=== PATIENT | male | born 1940 | race Caucasian/White ===

== ENCOUNTER 2019-08-23 07:33 | Day surgery (SDC) | payer OTHER, BC ==
[2019-08-23 08:16] LABS: Basophils % 0.4 % (0-1.3); Hematocrit 46.7 % (39.6-49.0); Lymphocytes % 15.2 % (15.3-44.8); MPV 8.6 fL (7.6-11.3); RBC Red Blood Cell Count 4.97 M/uL (4.33-5.43)
[2019-08-23] MEDS ORDERED: CEFAZOLIN/SWI 1gm 1 GM/10 ML SYR ONE (08:41)
[2019-08-23] MEDS ORDERED: Ringers Lactate 1,000 ML IV ONE (08:41)
--- NOTE | 2019-08-23 08:56 | RAD REPORT ---
EXAM DESCRIPTION: Rufina Andrade (2 Views)08/23/2019 8:24 am CLINICAL HISTORY: Preop four mass removal from back. Hypertension COMPARISON: 2010 FINDINGS: The lungs are mildly hyperaerated The lungs appear clear of acute infiltrate. The heart is normal size IMPRESSION: No acute abnormalities displayed
[2019-08-23] MEDS ORDERED: FENTANYL CITR 100 MCG/2 ML ONE (10:32)
[2019-08-23] MEDS ORDERED: PROPOFOL 200 MG/20 ML VIAL IV ONE (10:32)
[2019-08-23] MEDS ORDERED: LIDOCAINE 2% MPF 5 ML VIAL ONE (10:33)
[2019-08-23] MEDS ORDERED: ONDANSETRON 4 MG/2 ML VIAL ONE (10:34)
[2019-08-23] MEDS ORDERED: MIDAZOLAM HCL 2 MG/2 ML INJ ONE (10:47)
--- NOTE | 2019-08-23 11:01 | EKG ---
Test Date: 2019-08-23 Test Time: 07:52:23 Video System Repairer: [employer] MEASUREMENT RESULTS: Intervals: Rate: 58 [place]: 246 QRSD: 100 QT: 436 QTc: 428 [place]: P: 33 [place]: 246 QRS: 27 T: 86 INTERPRETIVE STATEMENTS: Sinus bradycardia with 1st degree AV block Otherwise normal ECG Compared to ECG 10/12/2011 13:37:54 First degree AV block now present Electronically Signed On 08-23-19 11:00:39 CDT by Carter Ty
[2019-08-23 14:30] VITALS: BP 175/93; TEMP 97.2; O2SAT 96
--- NOTE | 2019-08-24 00:58 | OP ---
Date of Procedure: 08/23/2019 Surgeon: Jason Mo MD Preoperative Diagnosis: Back mass x3. Postoperative Diagnosis: Back mass x3. Procedures: Wide excision, left back mass 5 x 3 cm, with layered closure, and length of the closure was 5 cm. Wide excision, middle back mass 4 x 2 cm with layered closure, and length of closure was 4 cm. Wide excision, right back mass 6 x 4 cm with layered closure, and length of closure was 6 cm. Estimated Blood Loss: Minimal. Specimens: Back mass x3. Findings: Patient's cyst on the right lower back was inflamed and once open at the back table the cy st had as above. Anesthesia: General. Complications: None. Disposition: The patient tolerated the procedure in stable condition, taken to Recovery in good gene ral condition. Procedure In Detail: The patient was brought to the OR and placed in supine position. General anest hesia was begun. The patient was prepped and draped in usual sterile fashion in the left lateral pos ition. Marcaine 0.5% was infiltrated locally. Then, 15-blade was used to make 3 incisions 5 x 3 cm on the left back and 4 x 2 cm of middle black and 6 x 4 cm in the right back, and the entire cyst wit h wall was excised in all 3 areas. Sent to Pathology. Wound irrigated. Bleeding controlled with ca utery. Flaps created on the left in the middle back 2-0 chromic was used to approximate t he subcutaneous tissue and 3-0 nylon was closed skin on the right back. 0 chromic was used to reappr oximate the subcutaneous tissue and kami used to close skin. Sterile dressing was applied. The l ength of closures on the left back with 5 cm, mid back was 4 cm, and right back was [address] essing was applied. Patient was awakened and taken to Recovery in good general condition. Discharge Note: Patient will go to Day Surgery, then home when stable. Disposition: Home. Condition: Stable. Discharge Instructions: Resume home medications and diet. Activity as tolerated. No heavy lifting. Remove outer dressing in 2 days. Shower. Keep wound clean and dry. Followup my office in 1 week. Call for appointment. Tylenol No. 3 one tablet p.o. q.4 p.r.n. pain. Patient has Keflex. REYNA/CAMILLE Voice ID: [id number] Report ID: [id number]
== END 2019-08-23 13:38 | disposition home or self-care (01) ==
LOC: OR 07:33
PROVIDERS: ATTEND Surgery
PROC: 0JB70ZZ Excision of Back Subcutaneous Tissue and Fascia, Open Approach (ICD-10-PCS; 2019-08-23)
PROC: 0JB70ZZ Excision of Back Subcutaneous Tissue and Fascia, Open Approach (ICD-10-PCS; 2019-08-23)
PROC: 0JB70ZZ Excision of Back Subcutaneous Tissue and Fascia, Open Approach (ICD-10-PCS; principal; 2019-08-23 10:30)
DX: L72.0 Epidermal cyst (principal); I10 Essential (primary) hypertension
CPT/HCPCS: 93005; 87070; 85025; 80048; 36415; 87205; 88304; 87075; 71046; 11406 ×2; 11404; J2704; J2250; J3010; J0690; J7120; J2405

== ENCOUNTER 2019-09-11 08:54 | Emergency (ER) | payer OTHER, BC ==
[2019-09-11] MEDS ORDERED: LIDOCAINE 1% W/EPI 1:100,000 MDV 20 ML VIAL ONE (09:13)
--- NOTE | 2019-09-11 10:04 | ER ---
Nurse's Notes [facility] Name: Josh Stewart Age: 79 yrs Sex: Male : 1940 Arrival Date: 09/11/2019 Time: 08:55 Bed 4 Private MD: Diagnosis: Disruption of wound, unspecified Presentation: 09/11 09:01 Presenting complaint: Patient states: Infected cyst removed from R mid back area 2 ss weeks ago. Sutures removed 1 week ago. Patient reports this morning the incision popped open and bled a bit. No active bleeding noted at this time. Incision is approximately 2 inch in length. Transition of care: patient was not received from another setting of care. Onset of symptoms was September 11, 2019. Risk Assessment: Do you want to hurt yourself or someone else? Patient reports no desire to harm self or others. Initial Sepsis Screen: Does the patient meet any 2 criteria? Does the patient have a suspected source of infection? No. Patient's initial sepsis screen is negative. Care prior to arrival: None. 09:01 Method Of Arrival: Ambulatory ss 09:01 Acuity: ASLLY 4 ss Historical: - Allergies: 09:06 NKDA; ss - PMHx: 09:06 Hyperlipidemia; Hypertension; ss - Immunization history:: Adult Immunizations up to date. - Social history:: Smoking status: Patient/guardian denies using tobacco. - Ebola Screening: : Patient denies exposure to infectious person Patient denies travel to an Ebola-affected area in the 21 days before illness onset. Screenin:10 Abuse screen: Denies threats or abuse. Nutritional screening: No deficits noted. aa5 Tuberculosis screening: No symptoms or risk factors identified. Fall Risk None identified. Assessment: 09:10 General: Appears comfortable, Behavior is calm, cooperative. Pain: Denies pain. Neuro: aa5 Level of Consciousness is awake, alert, obeys commands, Oriented to person, place, time, situation. Cardiovascular: Patient's skin is warm and dry. Respiratory: Airway is patent Respiratory effort is even, unlabored, Respiratory pattern is regular, symmetrical. GI: No signs and/or symptoms were reported involving the gastrointestinal system. : No signs and/or symptoms were reported regarding the genitourinary system. EENT: No signs and/or symptoms were reported regarding the EENT system. Derm: Skin is pink, warm \T\ dry. Incision to posterior right lower rib cage area open, approximately 2 in long with subcutaneous tissue noted, no s/s of infection noted to site, no active bleeding noted. Musculoskeletal: Range of motion: intact in all extremities. 10:20 Reassessment: Patient is alert, oriented x 3, equal unlabored respirations, skin aa5 warm/dry/pink. Vital Signs: 09:06 BP 176 / 96; Pulse 68; Resp 16; Temp 98.3(TE); Pulse Ox 98% on R/A; Weight 97.52 kg; ss Height 6 ft. 1 in. (185.42 cm); Pain 0/10; 09:06 Body Mass Index 28.37 (97.52 kg, 185.42 cm) ED Course: 08:55 Patient arrived in ED. as 09:04 Giulia Deras RN is Primary Nurse. aa5 09:05 Ben Cross PA is PHCP. jr8 09:05 Teena Sanchez MD is Attending Physician. jr8 09:05 Triage completed. ss 09:06 Arm band placed on right wrist. ss 09:10 Patient has correct armband on for positive identification. Placed in gown. Bed in low aa5 position. Call light in reach. Side rails up X 1. 09:30 incision repair with sutures, completed by KRZYSZTOF Chong, cleaned with Hibiclens aa5 and saline by KRZYSZTOF. Dressed with gauze and tape per PA. 09:30 Patient did not have IV access during this emergency room visit. aa5 10:03 Jason Mo MD is Referral Physician. jr8 10:54 Primary Nurse role handed off by Giulia Deras, ROBERT aa5 Administered Medications: 09:30 Drug: Lidocaine-Epinephrine -1%: (1:100,000) 1 vials {Note: administered to wound by aa5 KRZYSZTOF Turcios .} Volume: 20 ml; Route: Infiltration; 09:40 Follow up: Response: No adverse reaction aa5 Outcome: 10:04 Discharge ordered by . jr8 10:20 Discharged to home ambulatory. aa5 10:20 Condition: good 10:20 Discharge instructions given to patient, Instructed on discharge instructions, follow up and referral plans. medication usage, Demonstrated understanding of instructions, follow-up care, medications, Prescriptions given X 1. 10:21 Patient left the ED. aa5 Signatures: Krystal Huizar Audri RN RN aa5 Aleisha Bradshaw RN RN Ben Cross PA PA jr8 Corrections: (The following items were deleted from the chart) 09:20 09:10 General: Appears comfortable, Behavior is calm, cooperative, aa5 aa5 10:57 10:47 Patient left the ED. aa5 aa5 :57 10:57 Patient left the ED. aa5 aa5
--- NOTE | 2019-09-11 10:04 | EDPHYS ---
Physician Documentation [facility] Name: Josh Stewart Age: 79 yrs Sex: Male : 1940 Arrival Date: 09/11/2019 Time: 08:55 Bed 4 Private MD: ED Physician Teena Sanchez HPI: 09/11 09:13 This 79 yrs old Male presents to ER via Ambulatory with complaints of Wound jr8 Check. 09:13 The affected area is on the back. Previous treatment: The patient was initially treated jr8 14 day(s) ago. Progress: The patient reports dehiscence of wound . The patient has not experienced similar symptoms in the past. The patient has not recently seen a physician. Patient stated that he had a cyst removed by Dr. Mo about 2 weeks ago. Had been doing well until today. [place] the wound come undone while walking. Stated that it had bleed quite a bit prior to arrival . Historical: - Allergies: 09:06 NKDA; ss - PMHx: 09:06 Hyperlipidemia; Hypertension; ss - Immunization history:: Adult Immunizations up to date. - Social history:: Smoking status: Patient/guardian denies using tobacco. - Ebola Screening: : Patient denies exposure to infectious person Patient denies travel to an Ebola-affected area in the 21 days before illness onset. ROS: 09:13 Constitutional: Negative for fever, chills, and weight loss. jr8 09:13 Skin: Positive for dehiscence of wound. 09:13 All other systems are negative. Exam: 09:13 Cardiovascular: Regular rate and rhythm with a normal S1 and S2. No gallops, murmurs, jr8 or rubs. Normal PMI, no JVD. No pulse deficits. Respiratory: Lungs have equal breath sounds bilaterally, clear to auscultation and percussion. No rales, rhonchi or wheezes noted. No increased work of breathing, no retractions or nasal flaring. Abdomen/GI: Soft, non-tender, with normal bowel sounds. No distension or tympany. No guarding or rebound. No evidence of tenderness throughout. Back: No spinal tenderness. No costovertebral tenderness. Full range of motion. MS/ Extremity: Pulses equal, no cyanosis. Neurovascular intact. Full, normal range of motion. Neuro: Awake and alert, GCS 15, oriented to person, place, time, and situation. Cranial nerves II-XII grossly intact. Motor strength 5/5 in all extremities. Sensory grossly intact. Cerebellar exam normal. Normal gait. 09:13 Skin: Patient has approximately 6 cm dehisced wound noted to right mid back. No active bleeding. Clean in appearance and without discharge or erythema. Vital Signs: 09:06 BP 176 / 96; Pulse 68; Resp 16; Temp 98.3(TE); Pulse Ox 98% on R/A; Weight 97.52 kg; ss Height 6 ft. 1 in. (185.42 cm); Pain 0/10; 09:06 Body Mass Index 28.37 (97.52 kg, 185.42 cm) ss Laceration: 10:01 Wound Repair of 6cm ( 2.4in ) subcutaneous laceration to back. Linear shaped.. Distal jr8 neuro/vascular/tendon intact. Anesthesia: Local anesthetic administered with 10 mls of 1% lidocaine w/ Epi. Wound prep: Extensive cleansing with hibiclenz, Wound irrigation with saline, Wound explored extensively. Subcutaneous tissue closed with 5 4-0 Vicryl using interrupted sutures and sterile technique. Skin closed with 9 3-0 Prolene using interrupted sutures and sterile technique. Patient tolerated well. MDM: 09:05 Patient medically screened. jr8 09:13 ED course: Called Dr. Mo about wound reopening. Wants us to clean and close it jr8 secondarily . 10:01 Data reviewed: vital signs, nurses notes, and as a result, I will discharge patient. jr8 Data interpreted: Pulse oximetry: on room air is 98 %. Interpretation: normal. Counseling: I had a detailed discussion with the patient and/or guardian regarding: the historical points, exam findings, and any diagnostic results supporting the discharge/admit diagnosis, the need for outpatient follow up, a general surgeon, to return to the emergency department if symptoms worsen or persist or if there are any questions or concerns that arise at home. ED course: Patient to f/u with Dr. Mo this afternoon in clinic. Administered Medications: 09:30 Drug: Lidocaine-Epinephrine -1%: (1:100,000) 1 vials {Note: administered to wound by KRZYSZTOF Vigil} Volume: 20 ml; Route: Infiltration; 09:40 Follow up: Response: No adverse reaction aa5 Disposition: 11:45 Co-signature as Attending Physician, Teena Sanchez MD. ma2 Disposition: 09/11/19 10:04 Discharged to Home. Impression: Disruption of wound, unspecified. - Condition is Stable. - Discharge Instructions: Wound Dehiscence. - Prescriptions for Keflex 500 mg Oral Capsule - take 1 capsule by ORAL route every 8 hours for 7 days; 21 capsule. - Medication Reconciliation Form, Thank You Letter, Antibiotic Education, Prescription Opioid Use form. - Follow up: Jason Mo MD; When: Tomorrow; Reason: Wound Recheck, Recheck today's complaints, Continuance of care, Re-evaluation by your physician. - Problem is new. - Symptoms have improved. Signatures: Giulia Deras RN RN aa5 Aleisha Bradshaw RN RN Ben Cross PA PA jr8 Teena Sanchez MD MD ma2 Corrections: (The following items were deleted from the chart) 10:47 10:04 09/11/2019 10:04 Discharged to Home. Impression: Disruption of wound, aa5 unspecified. Condition is Stable. Forms are Medication Reconciliation Form, Thank You Letter, Antibiotic Education, Prescription Opioid Use. Follow up: Dr. Jason Mo; When: Tomorrow; Reason: Wound Recheck, Recheck today's complaints, Continuance of care, Re-evaluation by your physician. Problem is new. Symptoms have improved. jr8 10:57 10:47 09/11/2019 10:04 Discharged to Home. Impression: Disruption of wound, aa5 unspecified. Condition is Stable. Discharge Instructions: Wound Dehiscence. Prescriptions for Keflex 500 mg Oral Capsule - take 1 capsule by ORAL route every 8 hours for 7 days; 21 capsule. and Forms are Medication Reconciliation Form, Thank You Letter, Antibiotic Education, Prescription Opioid Use. Follow up: Dr. Jason Mo; When: Tomorrow; Reason: Wound Recheck, Recheck today's complaints, Continuance of care, Re-evaluation by your physician. Problem is new. Symptoms have improved. aa5
[2019-09-11 10:52] VITALS: BP 176/96; TEMP 98.3; O2SAT 98
== END 2019-09-11 10:57 | disposition home or self-care (01) ==
LOC: ER 08:54
PROC: 0JQ70ZZ Repair Back Subcutaneous Tissue and Fascia, Open Approach (ICD-10-PCS; principal; 2019-09-11)
DX: T81.30XA Disruption of wound, unspecified, initial encounter (principal); I10 Essential (primary) hypertension
CPT/HCPCS: 99283

== ENCOUNTER 2020-11-11 11:32 | Inpatient (IN) | payer OTHER, BC ==
[2020-11-11] MEDS ORDERED: METHYLPREDNISOLONE 125 MG INJ ONE (12:29)
[2020-11-11] MEDS ORDERED: NA CHLORIDE 0.9% 500 ML ONE (12:29)
[2020-11-11 12:50] LABS: Absolute Lymphocytes (CBC) 0.2 K/uL (0.7-4.9); Basophils % 0.1 % (0-1.3); Hematocrit 46.7 % (39.6-49.0); Lymphocytes % 2.9 % (15.3-44.8); MPV 8.5 fL (7.6-11.3); RBC Red Blood Cell Count 5.08 M/uL (4.33-5.43)
[2020-11-11 12:54] LABS: Protime INR 1.16
[2020-11-11 13:19] LABS: Platelet Estimate ADEQ; White Blood Cell Scan OK (OK)
[2020-11-11 13:20] LABS: Blood Morphology Comment NOT SEEN (NOT SEEN)
[2020-11-11 13:21] LABS: Albumin 2.6 g/dL (3.4-5.0); Bilirubin Direct 0.3 mg/dL (0-0.2); Bilirubin Total 1.1 mg/dL (0.2-1.0); C-Reactive Protein 87.9 mg/L (<3.00); Ferritin 1052.9 ng/mL (26-388); Protein, Total 6.8 g/dL (6.4-8.2); Troponin (Emerg Dept Use Only) 0.03 ng/mL (0.0-0.045)
--- NOTE | 2020-11-11 13:21 | RAD REPORT ---
EXAM DESCRIPTION: RAD - Chest Single View - 11/11/2020 1:04 pm CLINICAL HISTORY: DYSPNEA Chest pain. COMPARISON: Chest Pa And Lat (2 Views) dated 08/23/2019; CHEST PA AND LAT 2 VIEW dated 10/12/2011; CH EST PA AND LAT 2 VIEW dated 12/26/2006 FINDINGS: Portable technique limits examination quality. Mild opacity is present in the right base most likely representing infiltrate/pneumonia. This appears superimposed on a mild viral infiltrate pattern bilaterally. The heart is mildly enlarged in size wi th a tortuous thoracic aorta.
[2020-11-11] MEDS ORDERED: Levofloxacin500mg IV 500 MG/100 ML BAG IV ONE (13:55)
--- NOTE | 2020-11-11 13:56 | EDPHYS ---
Physician Documentation [facility] Name: Josh Stewart Age: 80 yrs Sex: Male : 1940 Arrival Date: 11/11/2020 Time: 11:33 Bed 19 Private MD: ED Physician Leonidas Liu HPI: 11/11 13:04 This 80 yrs old Male presents to ER via Wheelchair with complaints of Covid + rn SOB. 13:04 The patient has shortness of breath at rest, with light activity. Onset: The rn symptoms/episode began/occurred 3 day(s) ago. Duration: The symptoms are continuous. The patient's shortness of breath is aggravated by exertion, light activity, talking, walking. Associated signs and symptoms: Pertinent positives: productive cough, fever, Pertinent negatives: hemoptysis, loss of consciousness. Severity of symptoms: At their worst the symptoms were moderate in the emergency department the symptoms are unchanged. The patient has not experienced similar symptoms in the past. The patient has been recently seen by a physician:. Historical: - Allergies: 11:45 NKDA; ll1 - PMHx: 11:45 Hypertension; Hyperlipidemia; ll1 - PSHx: 11:45 None; ll1 - Immunization history:: Flu vaccine is not up to date. - Social history:: Smoking status: Patient denies any tobacco usage or history of. - Family history:: not pertinent. - Hospitalizations: : No recent hospitalization is reported. ROS: 13:04 Constitutional: Negative for weight loss, Eyes: Negative for injury, pain, redness, and internal medicine physician assistant, Neck: Negative for injury, pain, and swelling, Cardiovascular: Negative for chest pain, palpitations, and edema, Respiratory: Negative for wheezing, and pleuritic chest pain Abdomen/GI: Negative for abdominal pain, nausea, vomiting, diarrhea, and constipation, Back: Negative for injury and pain, MS/Extremity: Negative for injury and deformity, Skin: Negative for injury, rash, and discoloration, Neuro: Negative for headache, numbness, tingling, and seizure. Exam: 13:04 Constitutional: This is a well developed, well nourished patient who is awake, alert, rn + moderate tachypnea, 3 word sentences. Head/Face: Normocephalic, atraumatic. ENT: dry MM, no stridor Cardiovascular: Regular rate and rhythm. No pulse deficits. Respiratory: + moderate tachypnea, shallow breaths Abdomen/GI: Soft, non-tender Skin: Warm, dry MS/ Extremity: Pulses equal, no cyanosis. Neuro: Awake and alert, GCS 15 Vital Signs: 11:45 BP 131 / 73; Pulse 88; Resp 28; Temp 99.1; Pulse Ox 90% ; Weight 95.25 kg; Height 6 ft. ll1 0 in. (182.88 cm); Pain 6/10; 13:32 BP 138 / 76; Pulse 80; Resp 30; Pulse Ox 95% on BiPAP; em 14:30 BP 127 / 69; Pulse 76; Resp 18; Pulse Ox 96% on BiPAP; em 15:30 BP 125 / 73; Pulse 66; Resp 18; Pulse Ox 99% on R/A; em 11:45 Body Mass Index 28.48 (95.25 kg, 182.88 cm) ll1 MDM: 11:55 Patient medically screened. rn 13:50 Differential diagnosis: pneumonia, Pneumothorax Sepsis COVID pneumonia, superimposed rn pneumonia. Data reviewed: vital signs, nurses notes, radiologic studies, CT scan, and as a result, I will discharge patient. Counseling: I had a detailed discussion with the patient and/or guardian regarding: the historical points, exam findings, and any diagnostic results supporting the discharge/admit diagnosis, radiology results, the need for outpatient follow up, to return to the emergency department if symptoms worsen or persist or if there are any questions or concerns that arise at home. Response to treatment: the patient's symptoms have mildly improved after treatment, and as a result, I will admit patient. Admission orders: after a detailed discussion of the patient's condition and case, the admit orders are written by me. ED course: Pt with hypoxemia, increased WOB, improved with BIPAP, COVID + with possible superimposed pneumonia, will admit to Dr. Mccarthy. . 11/11 12:03 Order name: Blood Culture Adult (2) rn 11/11 12:03 Order name: BMP; Complete Time: 13: rn 11/11 12:03 Order name: C-Reactive Protein; Complete Time: 13: rn 11/11 12:03 Order name: CBC with Diff; Complete Time: rn 11/11 12:03 Order name: Ferritin; Complete Time: 13:27 rn 11/11 12:03 Order name: Lactate rn 11/11 12:03 Order name: LFT's; Complete Time: 13: rn 11/11 12:03 Order name: Procalcitonin; Complete Time: 14:19 rn 11/11 12:03 Order name: PT-INR; Complete Time: 13: rn 11/11 12:03 Order name: Ptt, Activated; Complete Time: 13: rn 11/11 12:03 Order name: Strep; Complete Time: 13: rn 11/11 12:03 Order name: Troponin (emerg Dept Use Only); Complete Time: 13: rn 11/11 13:05 Order name: Throat Culture EDKS 11/11 13:19 Order name: CBC Smear Scan; Complete Time: 13: EDKS 11/11 12:03 Order name: CXR XRAY; Complete Time: 13: rn 11/11 12:03 Order name: EKG; Complete Time: 12:04 rn 11/11 12:03 Order name: Cardiac monitoring; Complete Time: 12:12 rn 11/11 12:03 Order name: Droplet/Contact Precautions; Complete Time: 12:12 rn 11/11 12:03 Order name: EKG - Nurse/Tech; Complete Time: 12:29 rn 11/11 12:03 Order name: IV Start; Complete Time: 12:12 rn 11/11 12:03 Order name: Labs collected and sent; Complete Time: 12:37 rn 11/11 12:03 Order name: O2 Per Protocol; Complete Time: 12:12 rn 11/11 12:03 Order name: O2 Sat Monitoring; Complete Time: 12:12 rn 11/11 12:32 Order name: BIPAP rn Administered Medications: 12:34 Drug: SOLU-Medrol 125 mg Route: IVP; Site: right forearm; em 13:27 Follow up: Response: No adverse reaction; Marked relief of symptoms em 12:34 Drug: NS 0.9% 500 ml Route: IV; Rate: bolus; Site: right forearm; em 13:27 Follow up: IV Status: Completed infusion; IV Intake: 500ml em 13:48 Drug: LevaQUIN 500 mg Volume: 100 ml; Route: IVPB; Infused Over: 60 mins; Site: right em forearm; 14:59 Follow up: IV Status: Completed infusion; IV Intake: 100ml em Disposition: 11/11/20 13:56 Hospitalization ordered by Kailash Mccarthy for Inpatient Admission. Preliminary diagnosis are Coronavirus infection, unspecified, Pneumonia, unspecified organism, Hypoxemia. - Bed requested for Telemetry/MedSurg (Inpatient). - Status is Inpatient Admission. em - Condition is Stable. - Problem is new. - Symptoms have improved. Signatures: Dispatcher [employer] EDMS Guera Stringer Edgar, RN RN Leonidas Barrett MD MD rn Lewis, ROBERT Lucia RN ll1 Corrections: (The following items were deleted from the chart) 15:06 13:56 Hospitalization Ordered by Kailash Mccarthy DO for Inpatient Admission. Preliminary bd diagnosis is Coronavirus infection, unspecified; Pneumonia, unspecified organism; Hypoxemia. Bed requested for Telemetry/MedSurg (Inpatient). Status is Inpatient Admission. Condition is Stable. Problem is new. Symptoms have improved. rn 15:55 15:06 11/11/2020 13:56 Hospitalization Ordered by Kailash Mccarthy DO for Inpatient em Admission. Preliminary diagnosis is Coronavirus infection, unspecified; Pneumonia, unspecified organism; Hypoxemia. Bed requested for Telemetry/MedSurg (Inpatient). Status is Inpatient Admission. Condition is Stable. Problem is new. Symptoms have improved. bd
--- NOTE | 2020-11-11 13:56 | ER ---
Nurse's Notes [facility] Name: Josh Stewart Age: 80 yrs Sex: Male : 1940 Arrival Date: 11/11/2020 Time: 11:33 Bed 19 Private MD: Diagnosis: Coronavirus infection, unspecified;Pneumonia, unspecified organism;Hypoxemia Presentation: 11/11 11:45 Chief complaint: Patient states: SOB for 3 days. Covid positive at [place] [facility]. Fever ll1 100.1 at home. Coronavirus screen: Client denies travel out of the [place] in the last 14 days. congestion, cough unrelated to allergies, difficulty breathing, fatigue, fever, Client presents with at least one sign or symptom that may indicate coronavirus-19. Standard/surgical mask placed on the client. Ebola Screen: Patient denies travel to an Ebola-affected area in the 21 days before illness onset. Initial Sepsis Screen: Does the patient meet any 2 criteria? No. Patient's initial sepsis screen is negative. Does the patient have a suspected source of infection? Yes: Productive cough/pneumonia. Risk Assessment: Do you want to hurt yourself or someone else? Patient reports no desire to harm self or others. Onset of symptoms was October 26, 2020. 11:45 Method Of Arrival: Wheelchair ll1 11:45 Acuity: SALLY 2 ll1 Historical: - Allergies: 11:45 NKDA; ll1 - PMHx: 11:45 Hypertension; Hyperlipidemia; ll1 - PSHx: 11:45 None; ll1 - Immunization history:: Flu vaccine is not up to date. - Social history:: Smoking status: Patient denies any tobacco usage or history of. - Family history:: not pertinent. - Hospitalizations: : No recent hospitalization is reported. Screenin:00 Abuse screen: Denies threats or abuse. Nutritional screening: No deficits noted. em Tuberculosis screening: No symptoms or risk factors identified. Fall Risk None identified. Assessment: 12:00 General: Appears uncomfortable, Behavior is calm, cooperative, Denies fever. General: em Reports fatigue for 12-24 hours. Pain: Denies pain. Neuro: Level of Consciousness is awake, alert, obeys commands, Oriented to person, place, time, situation, Appropriate for age. Cardiovascular: Denies chest pain, Capillary refill < 3 seconds Patient's skin is warm and dry. Respiratory: Reports shortness of breath on exertion Airway is patent Respiratory effort is even, labored, Respiratory pattern is tachypnea Breath sounds are diminished bilaterally. Derm: Skin is intact, is thin, Skin is pink, warm \T\ dry. Musculoskeletal: Capillary refill < 3 seconds, Range of motion: intact in all extremities. 12:30 Reassessment: RT at bedside. em 13:33 Reassessment: Patient appears in no apparent distress at this time. Patient and/or em family updated on plan of care and expected duration. Pain level reassessed. Patient states feeling better. Patient states symptoms have improved. 14:47 Reassessment: Patient appears in no apparent distress at this time. Dr. Mccarthy at em bedside. 15:50 Reassessment: Patient appears in no apparent distress at this time. Patient and/or em family updated on plan of care and expected duration. Pain level reassessed. Patient is alert, oriented x 3, equal unlabored respirations, skin warm/dry/pink. Vital Signs: 11:45 BP 131 / 73; Pulse 88; Resp 28; Temp 99.1; Pulse Ox 90% ; Weight 95.25 kg; Height 6 ft. ll1 0 in. (182.88 cm); Pain 6/10; 13:32 BP 138 / 76; Pulse 80; Resp 30; Pulse Ox 95% on BiPAP; em 14:30 BP 127 / 69; Pulse 76; Resp 18; Pulse Ox 96% on BiPAP; em 15:30 BP 125 / 73; Pulse 66; Resp 18; Pulse Ox 99% on R/A; em 11:45 Body Mass Index 28.48 (95.25 kg, 182.88 cm) ll1 ED Course: 11:33 Patient arrived in ED. ds1 11:44 Arm band placed on. ll1 11:48 Triage completed. ll1 11:55 Leonidas Liu MD is Attending Physician. rn 11:55 Ladarius Alves, ROBERT is Primary Nurse. em 12:00 Oxygen administration via nasal cannula \T\ 3L/min. jp3 12:15 First set of blood cultures drawn by me. Inserted saline lock: 20 gauge in right jp3 forearm, using aseptic technique. Blood collected. 12:19 EKG done, by ED staff, reviewed by Leonidas Liu MD Strep swab sent to lab. jp3 12:25 Initial lab(s) drawn, by me, sent to lab. Second set of blood cultures drawn by me. jp3 12:30 Placed in gown. Bed in low position. Call light in reach. Side rails up X 1. Warm jp3 blanket given. Verbal reassurance given. cardiac monitor technician on. Pulse ox on. NIBP on. 13:04 CXR XRAY In Process Unspecified. EDMS 13:55 Kailash Mccarthy DO is Hospitalizing Provider. rn 15:53 No provider procedures requiring assistance completed. Patient admitted, IV remains in em place. Administered Medications: 12:34 Drug: SOLU-Medrol 125 mg Route: IVP; Site: right forearm; em 13:27 Follow up: Response: No adverse reaction; Marked relief of symptoms em 12:34 Drug: NS 0.9% 500 ml Route: IV; Rate: bolus; Site: right forearm; em 13:27 Follow up: IV Status: Completed infusion; IV Intake: 500ml em 13:48 Drug: LevaQUIN 500 mg Volume: 100 ml; Route: IVPB; Infused Over: 60 mins; Site: right em forearm; 14:59 Follow up: IV Status: Completed infusion; IV Intake: 100ml em Intake: 13:27 IV: 500ml; Total: 500ml. em 14:59 IV: 100ml; Total: 600ml. em Outcome: 13:56 Decision to Hospitalize by Provider. rn 15:53 Admitted to Tele accompanied by tech, via stretcher, room 409, with oxygen, with chart, em Report called to ROBERT Gresham 15:53 Condition: improved 15:53 Instructed on the need for admit, Demonstrated understanding of instructions. 15:55 Patient left the ED. em Signatures: Dispatcher [employer] EDMS Ladarius Alves, RN RN em Kasey Leonardo ds1 Leonidas Liu MD MD rn Pisarski, Jacob jp3 Khari Anderson RN RN ll1 Corrections: (The following items were deleted from the chart) 12:34 12:34 NS 0.9% 500 ml IV at bolus in right antecubital em em
[2020-11-11] MEDS ORDERED: BENZONATATE 100 MG CAP PO PRN (15:41)
[2020-11-11] MEDS ORDERED: ACETAMINOPHEN 500 MG TAB PO PRN (15:41)
[2020-11-11] MEDS ORDERED: GABAPENTIN 100 MG CAP PO PRN (15:41)
[2020-11-11] MEDS ORDERED: ONDANSETRON 4 MG/2 ML VIAL IV PRN (15:41)
--- NOTE | 2020-11-11 16:15 | P.HP ---
Certification for Inpatient Patient admitted to: Observation With expected LOS: <2 Midnights Patient will require the following post-hospital care: Other (Home oxygen) Practitioner: I am a practitioner with admitting privileges, knowledge of patient current condition, hospital course, and medical plan of care. Services: Services provided to patient in accordance with Admission requirements found in Title 42 Section 412.3 of the Code of Federal Regulations Patient History Date of Service: 11/11/20 Primary Care Provider: Dr. Bone Reason for admission: Shortness of breath History of Present Illness: 80-year-old male with history of hypertension, hyperlipidemia, BPH, hypothyroidism and GERD. Patient reports increasing shortness of breath over the past several weeks. Patient started she reports some shortness of breath and cough on October 27. He apparently went to [place] [facility] about 3 days ago and tested positive for COVID. Patient was released home. At home patient continue to have increasing shortness of breath. Increased fatigue, cough, and body aches noted. He came to the ER for further evaluation. In the ER patient was evaluated. Blood pressure 133/77. Heart rate 91. Patient was tachypneic in the ER. Patient had desaturations for requiring 3 L per nasal cannula. During the course of his ER visit patient required BiPAP. Chest x-ray reveals pattern of COVID pneumonia. White count 8.3, hemoglobin 15.4. Sodium 131, potassium 4.0. BUN of 22, creatinine 1.16 with a GFR 60. Glucose 99. Fe rritin 1052. CRP 87. Total bilirubin 1.1. AST 62. Pro calcitonin unremarkable. Patient admitted for further evaluation and treatment. When I saw the patient ER, patient was on BiPAP but only required 28% Fi02. Patient without significant tachypnea. Patient reports other female lady friend with similar symptoms. Allergies ciprofloxacin Allergy (Verified 08/23/19 13:14) Rash Home medications list reviewed: Yes Home Medications: Tramadol HCl [Tramadol] 50 mg PO Q6HP PRN #0 tbmp.24hr 11/29/11 Aspirin [Ecotrin 81 MG] 81 mg PO DAILY 08/23/19 Diltiazem HCl [Cardizem Cd] 240 mg PO DAILY 08/23/19 Finasteride [Proscar*] 5 mg PO DAILY 08/23/19 Gabapentin 100 mg PO DAILY 08/23/19 Omeprazole [Prilosec] 40 mg PO DAILY 08/23/19 Rosuvastatin Calcium [Crestor] 10 mg PO DAILY 08/23/19 - Past Medical/Surgical History -: Hypertension -: BPH -: Hyperlipidemia -: Neuropathy -: Hypothyroidism Past Surgical History: Reviewed- Non-Contributory Psychosocial/ Personal History: Patient is - Family History Family History: Reviewed- Non-Contributory - Social History Smoking Status: Never smoker Alcohol use: Yes CD- Drugs: No Caffeine use: Yes Place of Residence: Home Review of Systems General: Weakness, Malaise, As per HPI Eyes: Unremarkable ENT: As per HPI Respiratory: Cough, Shortness of Breath, SOB with Excertion, As per HPI Cardiovascular: Unremarkable Gastrointestinal: Unremarkable Genitourinary: Unremarkable Musculoskeletal: Unremarkable Integumentary: Unremarkable Neurological: Unremarkable Lymphatics: Unremarkable Physical Examination - Vital Signs Temperature: 99.1 F Blood Pressure: 131/73 Pulse: 88 Respirations: 28 - Physical Exam General: Alert, In no apparent distress, Oriented x3, Cooperative HEENT: Atraumatic Neck: Supple Respiratory: Other (Patient currently on BiPAP. FiO2 20%) Cardiovascular: Normal pulses Gastrointestinal: Normal bowel sounds, No tenderness, No masses, No rebound, No guarding Musculoskeletal: No erythema, No tenderness, No warmth Integumentary: No tenderness/swelling, No erythema, No warmth, No cyanosis Neurological: Normal speech, Normal strength at 5/5 x4 extr, Normal tone, Normal affect - Studies Laboratory Data (last 24 hrs) 11/11/20 12:26: PT 13.6 H, INR 1.16, APTT 25.6 11/11/20 12:26: WBC 8.3, Hgb 15.4, Hct 46.7, Plt Count 214 11/11/20 12:26: Sodium 139, Potassium 4.0, BUN 22 H, Creatinine 1.16, Glucose 99, Total Bilirubin 1.1 H, AST 62 H, ALT 70, Alkaline Phosphatase 93 Microbiology Data (last 24 hrs): 11/11/20 12:19 Throat Group A Streptococcus Rapid Screen - Final Assessment and Plan - Plan Impression: Dyspnea secondary to acute respiratory failure with hypoxia related to bilateral COVID pneumonia HTN Hyperlipidemia BPH Plan: Dyspnea secondary to acute respiratory failure with hypoxia related to bilateral COVID pneumonia: Patient will be admitted for further evaluation and treatment. Patient currently on BiPAP. This can be stepped down to high-flow oxygen. Will monitor closely. Maintain sats above 90%. Options for care address in detail. Will start IV Solu-Medrol. Provide Lovenox for DVT prophylaxis. Continue with supplementation medication. Will reassess tomorrow to determine if Remdesivir needs to be started. Pulmonology consulted. Will continue monitor closely. Anticipate improvement over the next 24-48 hr. Patient will likely require home oxygen at discharge. HTN: Restart home medication. Hyperlipidemia: Restart home medication BPH: Restart home medication. Discharge Plan: Home Plan to discharge in: 48 Hours - Advance Directives Does patient have a Living Will: No Does patient have a Durable POA for Healthcare: No - Code Status/Comfort Care Code Status Assessed: Yes (full code) Time Spent Managing Pts Care (In Minutes): 55
[2020-11-11 17:10] LABS: Urine Appearance CLEAR; Urine Blood TRACE (NEG); Urine Color DK YELLOW; Urine Glucose NEGATIVE (NEG); Urine Protein 2+ (NEG); Urine Specific Gravity 1.025 (1.005-1.030)
[2020-11-11] MEDS: ENOXAPARIN 40 MG/0.4 ML SQ SCH (17:39)
[2020-11-11] MEDS: METHYLPREDNISOLONE 125 MG INJ IV SCH (17:39)
[2020-11-11] MEDS: ASCORBIC ACID 500 MG TABLET PO SCH ×2 (17:39→21:14)
[2020-11-11 18:05] LABS: Urine Bilirubin NEGATIVE (NEG); Urine Microscopic Reflex ORDER UMIC
[2020-11-11 19:06] LABS: Urine Bacteria 20-50 /HPF (NONE SEEN); Urine Mucus 3+ /HPF (NONE SEEN); Urine RBC <5 /HPF (NONE SEEN)
[2020-11-11] MEDS: ROSUVASTATIN 10 MG TAB PO SCH (21:13)
[2020-11-11] MEDS: FAMOTIDINE 20 MG TAB PO SCH (21:14)
[2020-11-11] MEDS: MELATONIN 5 MG TABLET PO SCH (21:14)
[2020-11-11] MEDS: THIAMINE HCL 100 MG TABLET PO SCH (21:14)
[2020-11-11] MEDS: FINASTERIDE 5 MG TAB PO SCH (21:16)
[2020-11-12] MEDS: METHYLPREDNISOLONE 125 MG INJ IV SCH ×3 (00:34→16:04)
[2020-11-12] MEDS: LEVOTHYROXINE SOD 0.025 MG TAB PO SCH (06:33)
[2020-11-12 06:48] LABS: Absolute Lymphocytes (CBC) 0.2 K/uL (0.7-4.9); Basophils % 0.1 % (0-1.3); Hematocrit 40.8 % (39.6-49.0); Lymphocytes % 3.8 % (15.3-44.8); MPV 8.2 fL (7.6-11.3); RBC Red Blood Cell Count 4.46 M/uL (4.33-5.43)
[2020-11-12 06:58] LABS: Albumin 2.1 g/dL (3.4-5.0); Bilirubin Total 0.6 mg/dL (0.2-1.0); Magnesium 2.5 mg/dL (1.8-2.4); Potassium 4.1 mmol/L (3.5-5.1); Protein, Total 5.9 g/dL (6.4-8.2)
[2020-11-12 07:33] LABS: C-Reactive Protein 95.4 mg/L (<3.00); Ferritin 1099.4 ng/mL (26-388)
[2020-11-12] MEDS ORDERED: IVERMECTIN 3 MG TABLET PO ONE (07:54)
[2020-11-12] MEDS: VITAMIN D 1000 UNIT TAB PO SCH (08:45)
[2020-11-12] MEDS: ZINC SULFATE 220 MG CAP PO SCH (08:45)
[2020-11-12] MEDS: ENOXAPARIN 40 MG/0.4 ML SQ SCH (08:45)
[2020-11-12] MEDS: ASPIRIN EC 81 MG TAB PO SCH (08:46)
[2020-11-12] MEDS: ASCORBIC ACID 500 MG TABLET PO SCH ×4 (08:46→20:50)
[2020-11-12] MEDS: FAMOTIDINE 20 MG TAB PO SCH ×2 (08:46→20:50)
[2020-11-12] MEDS: DILTIAZEM HCL 120 MG SR CAP PO SCH (08:46)
[2020-11-12] MEDS: THIAMINE HCL 100 MG TABLET PO SCH ×2 (08:48→20:50)
[2020-11-12] MEDS ORDERED: TRAMADOL HCL 100 MG PO PRN (09:09)
[2020-11-12] MEDS ORDERED: Remdesivir 200 MG in NA CHLORIDE 0.9% 250 ML IV ONE (10:00)
--- NOTE | 2020-11-12 13:51 | P.CNS ---
Date of Consult: 11/12/20 Primary Care Provider: Dr. Bone Chief Complaint: Shortness of breath History of Present Illness: Patient is 80 years of age with a history of hypertension hyperlipidemia was admitted with progressive shortness of breath worsens Miah read the 5th he also went to [facility] emergency room and was released home became worse and appeared in the emergency round with tachypnea low oxygen as currently nasal cannula oxygen is seems to be doing relatively well. Although he feels very weak Allergies ciprofloxacin Allergy (Intermediate, Verified 11/11/20 16:19) Rash Home Medications: Tramadol HCl [Tramadol] 50 mg PO Q6HP PRN #0 tbmp.24hr 11/29/11 Aspirin [Ecotrin 81 MG] 81 mg PO DAILY 08/23/19 Diltiazem HCl [Cardizem Cd] 240 mg PO DAILY 08/23/19 Finasteride [Proscar*] 5 mg PO DAILY 08/23/19 Gabapentin 100 mg PO DAILY 08/23/19 Omeprazole [Prilosec] 40 mg PO DAILY 08/23/19 Rosuvastatin Calcium [Crestor] 10 mg PO DAILY 08/23/19 Multivitamin [Multiple Vitamins] 1 tab PO DAILY 11/11/20 - Past Medical/Surgical History Diabetic: No -: Hypertension -: BPH -: Hyperlipidemia -: Neuropathy -: Hypothyroidism Psychosocial/ Personal History: Patient is - Social History Alcohol use: Yes CD- Drugs: No Caffeine use: Yes Place of Residence: Home Review of Systems 10-point ROS is otherwise unremarkable General: Weakness Respiratory: Cough, Shortness of Breath Physical Examination Temp Pulse Resp BP Pulse Ox 97.4 F 62 22 H 170/85 H 97 11/12/20 08:00 11/12/20 08:46 11/12/20 08:00 11/12/20 08:46 11/12/20 08:00 General: Alert, Oriented x3, Moderate distress Neck: Supple Respiratory: Clear to auscultation bilaterally, Diminished - Problems (1) 2019 novel coronavirus disease (COVID-19) Current Visit: Yes Status: Acute Plan: Patient is 80 years of age admitted with respiratory failure from shaffer virus he is currently feeling very weak short of breath although he is on nasal cannula oxygen is not rare treat to go home agree with the foreign treatment for shaffer virus infection including Remdesmir and ivermectin ferritin level is over a 1000
--- NOTE | 2020-11-12 16:49 | P.PN ---
Subjective Date of Service: 11/12/20 Primary Care Provider: Dr. Bone Chief Complaint: Shortness of breath Subjective: Other (Patient on high-flow) Physical Examination - Vital Signs Temperature: 97.6 F Blood Pressure: 121/70 Pulse: 49 Respirations: 20 Pulse Ox (%): 97 - Physical Exam General: Alert, Cooperative HEENT: Atraumatic Neck: Supple Respiratory: Other (Patient on high-flow oxygen) Cardiovascular: Normal pulses Neurological: Normal speech, Normal strength at 5/5 x4 extr, Normal tone, Normal affect - Studies Microbiology Data (last 24 hrs): 11/11/20 12:19 Throat Group A Streptococcus Rapid Screen - Final Medications List Reviewed: Yes Assessment & Plan Discharge Plan: Home Plan to discharge in: 48 Hours Physician Review Additional Text: Impression: Dyspnea secondary to acute respiratory failure with hypoxia related to bilateral COVID pneumonia HTN Hyperlipidemia BPH Plan: Dyspnea secondary to acute respiratory failure with hypoxia related to bilateral COVID pneumonia: Continue current plan of care. Pulmonology recommends to start Remdesivir. Will initiate medication. Continue to wean down oxygen. Encourage ambulation. Encourage the spirometer. Anticipate improvement over the next 48 hr. Will continue to trend lab. Recheck chest x-ray tomorrow. HTN: Continue home medication and adjust appropriately.. Hyperlipidemia: Continue home medication adjust properly. BPH: Continue home medication Time Spent Managing Pts Care (In Minutes): 55
[2020-11-12] MEDS: FINASTERIDE 5 MG TAB PO SCH (20:50)
[2020-11-12] MEDS: ROSUVASTATIN 10 MG TAB PO SCH (20:50)
[2020-11-12] MEDS: MELATONIN 5 MG TABLET PO SCH (20:50)
[2020-11-13] MEDS: METHYLPREDNISOLONE 125 MG INJ IV SCH ×3 (00:42→16:37)
[2020-11-13] MEDS: LEVOTHYROXINE SOD 0.025 MG TAB PO SCH (06:17)
[2020-11-13 06:53] LABS: Absolute Lymphocytes (CBC) 0.3 K/uL (0.7-4.9); Basophils % 0.1 % (0-1.3); Hematocrit 40.5 % (39.6-49.0); Lymphocytes % 3.4 % (15.3-44.8); MPV 8.5 fL (7.6-11.3); RBC Red Blood Cell Count 4.43 M/uL (4.33-5.43)
[2020-11-13 07:13] LABS: ALT/SGPT 131 U/L (12-78); AST/SGOT 94 U/L (15-37); Alkaline Phosphatase 73 U/L (45-117); BUN Blood Urea Nitrogen 27 mg/dL (7-18); Bicarbonate 25 mmol/L (21-32); Bilirubin Direct 0.1 mg/dL (0-0.2); Bilirubin Total 0.6 mg/dL (0.2-1.0); Glucose Level 148 mg/dL (74-106); Magnesium 2.5 mg/dL (1.8-2.4); Potassium 3.9 mmol/L (3.5-5.1); Protein, Total 5.6 g/dL (6.4-8.2); Sodium Level 138 mmol/L (136-145)
[2020-11-13] MEDS: FAMOTIDINE 20 MG TAB PO SCH ×2 (08:59→20:06)
[2020-11-13] MEDS: ASPIRIN EC 81 MG TAB PO SCH (08:59)
[2020-11-13] MEDS: ENOXAPARIN 40 MG/0.4 ML SQ SCH (08:59)
[2020-11-13] MEDS: ASCORBIC ACID 500 MG TABLET PO SCH ×4 (08:59→20:07)
[2020-11-13] MEDS: ZINC SULFATE 220 MG CAP PO SCH (09:00)
[2020-11-13] MEDS: Remdesivir 100 MG in NA CHLORIDE 0.9% 250 ML IV SCH (09:01)
[2020-11-13] MEDS: THIAMINE HCL 100 MG TABLET PO SCH ×2 (09:02→20:07)
[2020-11-13] MEDS: VITAMIN D 1000 UNIT TAB PO SCH (09:02)
[2020-11-13] MEDS: DILTIAZEM HCL 120 MG SR CAP PO SCH (09:29)
[2020-11-13 10:07] LABS: C-Reactive Protein 48.1 mg/L (<3.00); Ferritin 1284.6 ng/mL (26-388)
--- NOTE | 2020-11-13 12:30 | P.PN ---
Subjective Date of Service: 11/13/20 Primary Care Provider: Dr. Bone Chief Complaint: Pneumonia due to shaffer virus Subjective: Improving (Patient is improving he is feeling better still short of breath) Review of Systems General: Weakness Respiratory: Shortness of Breath Physical Examination - Vital Signs Temperature: 97.3 F Blood Pressure: 162/74 Pulse: 50 Respirations: 24 Pulse Ox (%): 96 - Physical Exam General: Alert, Oriented x3 Neck: Supple Respiratory: Crackles/rales, Friction rub Cardiovascular: Regular rate/rhythm - Studies Microbiology Data (last 24 hrs): 11/11/20 12:19 Throat Culture & Sensitivity - Final NORMAL UPPER RESPIRATORY YUDY GROWN. Medications List Reviewed: Yes Assessment & Plan - Problems (Diagnosis) (1) 2019 novel coronavirus disease (COVID-19) Current Visit: Yes Status: Acute Plan: Respiratory failure from shaffer virus he is improving his only a nasal cannula oxygen agree with discharge and with 5 days of ivermectin and prednisone 20 b.i.d. for at least 2 weeks then 10 b.i.d. full anticoagulation multi vitamin supplementation patient's ferritin level is still over a 1000 status post Remdesmir
--- NOTE | 2020-11-13 17:01 | P.PN ---
Subjective Date of Service: 11/13/20 Primary Care Provider: Dr. Bone Chief Complaint: Pneumonia due to shaffer virus Subjective: Other (Patient is slowly improving. Still some shortness of breath with exertion.) Physical Examination - Vital Signs Temperature: 97.3 F Blood Pressure: 162/74 Pulse: 50 Respirations: 24 Pulse Ox (%): 96 - Physical Exam General: Alert, In no apparent distress, Cooperative HEENT: Atraumatic Neck: Supple Respiratory: Other (Currently on 2 L) Cardiovascular: Normal pulses, Regular rate/rhythm Gastrointestinal: Normal bowel sounds, Soft and benign, Non-distended Neurological: Normal speech, Normal strength at 5/5 x4 extr, Normal tone, Normal affect - Studies Microbiology Data (last 24 hrs): 11/11/20 12:19 Throat Culture & Sensitivity - Final NORMAL UPPER RESPIRATORY YUDY GROWN. Medications List Reviewed: Yes Assessment & Plan Discharge Plan: Home Plan to discharge in: 48 Hours Physician Review Additional Text: Impression: Dyspnea secondary to acute respiratory failure with hypoxia related to bilateral COVID pneumonia HTN Hyperlipidemia BPH Plan: Dyspnea secondary to acute respiratory failure with hypoxia related to bilateral COVID pneumonia: Continue current management. Case discussed with pulmonology. Continue current plan of care. Continue with IV steroid and Remdesivir. Patient also on supplementation. Continue to wean down oxygen. Encourage ambulation. Encourage incentive spirometer. Patient will likely require oxygen at discharge. Anticipate improvement over the next 48 hr. Possible discharge as early as tomorrow if patient able to ambulate well without significant desaturation. I will turn the service over to the hospitalist team tomorrow. I will go plan of care with him. HTN: Continue home medication and adjust appropriately.. Hyperlipidemia: Continue home medication adjust properly. BPH: Continue home medication Time Spent Managing Pts Care (In Minutes): 55
[2020-11-13] MEDS: ROSUVASTATIN 10 MG TAB PO SCH (20:07)
[2020-11-13] MEDS: MELATONIN 5 MG TABLET PO SCH (20:07)
[2020-11-13] MEDS: FINASTERIDE 5 MG TAB PO SCH (20:07)
[2020-11-14] MEDS: METHYLPREDNISOLONE 125 MG INJ IV SCH ×4 (00:46→23:57)
[2020-11-14 03:38] LABS: Absolute Lymphocytes (CBC) 0.2 K/uL (0.7-4.9); Basophils % 0.2 % (0-1.3); Hematocrit 43.4 % (39.6-49.0); Lymphocytes % 2.4 % (15.3-44.8); MPV 8.2 fL (7.6-11.3); RBC Red Blood Cell Count 4.73 M/uL (4.33-5.43)
[2020-11-14 03:58] LABS: Albumin 2.1 g/dL (3.4-5.0); Bilirubin Direct 0.2 mg/dL (0-0.2); Bilirubin Total 0.6 mg/dL (0.2-1.0); C-Reactive Protein 26.1 mg/L (<3.00); Ferritin 1011.9 ng/mL (26-388); Magnesium 2.4 mg/dL (1.8-2.4); Potassium 4.1 mmol/L (3.5-5.1); Protein, Total 5.8 g/dL (6.4-8.2)
[2020-11-14] MEDS: LEVOTHYROXINE SOD 0.025 MG TAB PO SCH (05:32)
[2020-11-14] MEDS: DILTIAZEM HCL 120 MG SR CAP PO SCH (09:00)
[2020-11-14] MEDS: ENOXAPARIN 40 MG/0.4 ML SQ SCH (09:00)
[2020-11-14] MEDS: Remdesivir 100 MG in NA CHLORIDE 0.9% 250 ML IV SCH (09:21)
[2020-11-14] MEDS: VITAMIN D 1000 UNIT TAB PO SCH (09:22)
[2020-11-14] MEDS: FAMOTIDINE 20 MG TAB PO SCH ×2 (09:22→20:02)
[2020-11-14] MEDS: ASPIRIN EC 81 MG TAB PO SCH (09:22)
[2020-11-14] MEDS: ZINC SULFATE 220 MG CAP PO SCH (09:22)
[2020-11-14] MEDS: THIAMINE HCL 100 MG TABLET PO SCH ×2 (09:22→20:02)
[2020-11-14] MEDS: ASCORBIC ACID 500 MG TABLET PO SCH ×4 (09:22→20:02)
[2020-11-14] MEDS ORDERED: LACTULOSE 20 GM/30 ML UCUP PO PRN (10:22)
--- NOTE | 2020-11-14 10:40 | P.PN ---
Subjective Date of Service: 11/14/20 Primary Care Provider: Dr. Bone Chief Complaint: Pneumonia due to shaffer virus Subjective: No new changes, No C/O voiced, Improving Physical Examination - Vital Signs Temperature: 96.9 F Blood Pressure: 151/79 Pulse: 47 Respirations: 20 Pulse Ox (%): 93 - Physical Exam General: Alert, Oriented x3 HEENT: Atraumatic, Normocephalic, PERRLA Neck: Supple, 2+ carotid pulse no bruit Respiratory: Normal air movement, Diminished Cardiovascular: No edema, Normal pulses, Regular rate/rhythm, Normal S1 S2 Gastrointestinal: Normal bowel sounds, Non-distended Musculoskeletal: No clubbing, No swelling, No contractures Neurological: Normal speech, Normal strength at 5/5 x4 extr, Normal tone, Cranial nerves 3-12 intact External genitalia: No edema, No lesions - Studies Laboratory Last Values WBC 8.3 K/uL (4.3-10.9) 11/11/20 12:26 RBC 5.08 M/uL (4.33-5.43) 11/11/20 12:26 Hgb 15.4 g/dL (13.6-17.9) 11/11/20 12:26 Hct 46.7 % (39.6-49.0) 11/11/20 12:26 MCV 92.0 fL (80-100) 11/11/20 12:26 MCH 30.3 pg (27.0-35.0) 11/11/20 12:26 MCHC 33.0 g/dL (32.0-36.0) 11/11/20 12:26 RDW 13.6 % (12.1-15.2) 11/11/20 12:26 Plt Count 214 K/uL (152-406) 11/11/20 12:26 MPV 8.5 fL (7.6-11.3) 11/11/20 12:26 Neutrophils % 91.4 % (41.7-73.7) H 11/11/20 12:26 Lymphocytes % 2.9 % (15.3-44.8) L 11/11/20 12:26 Monocytes % 5.6 % (3.3-12.3) 11/11/20 12:26 Eosinophils % 0.0 % (0-4.4) 11/11/20 12:26 Basophils % 0.1 % (0-1.3) 11/11/20 12:26 Absolute Neutrophils 7.6 K/uL (1.8-8.0) 11/11/20 12: Absolute Lymphocytes 0.2 K/uL (0.7-4.9) L 11/11/20 12:26 Absolute Monocytes 0.5 K/uL (0.1-1.3) 11/11/20 12:26 Absolute Eosinophils 0.0 K/uL (0-0.5) 11/11/20 12:26 Absolute Basophils 0.0 K/uL (0-0.5) 11/11/20 12:26 Platelet Estimate Adeq 11/11/20 12:26 Morphology Comment Not seen (NOT SEEN) 11/11/20 12:26 PT 13.6 SECONDS (9.5-12.5) H 11/11/20 12:26 INR 1.16 11/11/20 12:26 APTT 25.6 SECONDS (24.3-36.9) 11/11/20 12:26 Sodium 139 mmol/L (136-145) 11/11/20 12:26 Potassium 4.0 mmol/L (3.5-5.1) 11/11/20 12:26 Chloride 104 mmol/L (98-107) 11/11/20 12:26 Carbon Dioxide 27 mmol/L (21-32) 11/11/20 12:26 BUN 22 mg/dL (7-18) H 11/11/20 12:26 Creatinine 1.16 mg/dL (0.55-1.3) 11/11/20 12:26 Estimated GFR 60 mL/min (=/>90) L 11/11/20 12:26 Glucose 99 mg/dL (74-106) 11/11/20 12:26 Lactic Acid Cancelled 11/11/20 12:03 Calcium 8.6 mg/dL (8.5-10.1) 11/11/20 12:26 Ferritin 1052.9 ng/mL (26-388) H 11/11/20 12:26 Total Bilirubin 1.1 mg/dL (0.2-1.0) H 11/11/20 12:26 Direct Bilirubin 0.3 mg/dL (0-0.2) H 11/11/20 12:26 AST 62 U/L (15-37) H 11/11/20 12:26 ALT 70 U/L (12-78) 11/11/20 12:26 Alkaline Phosphatase 93 U/L (45-117) 11/11/20 12:26 Rapid Troponin I 0.03 ng/mL (0.0-0.045) 11/11/20 12:26 C-Reactive Protein 87.90 mg/L (<3.00) H 11/11/20 12:26 Serum Total Protein 6.8 g/dL (6.4-8.2) 11/11/20 12:26 Albumin 2.6 g/dL (3.4-5.0) L 11/11/20 12:26 Globulin 4.2 g/dL (2.3-3.5) H 11/11/20 12:26 Albumin/Globulin Ratio 0.6 (1.1-1.8) L 11/11/20 12:26 Procalcitonin < 0.05 ng/mL (<0.050) 11/11/20 12:26 Smear Scan Ok (OK) 11/11/20 12:26 Laboratory Results WBC 8.3 K/uL (4.3-10.9) 11/11/20 12:26 RBC 5.08 M/uL (4.33-5.43) 11/11/20 12:26 Hgb 15.4 g/dL (13.6-17.9) 11/11/20 12:26 Hct 46.7 % (39.6-49.0) 11/11/20 12:26 MCV 92.0 fL (80-100) 11/11/20 12:26 MCH 30.3 pg (27.0-35.0) 11/11/20 12:26 MCHC 33.0 g/dL (32.0-36.0) 11/11/20 12:26 RDW 13.6 % (12.1-15.2) 11/11/20 12:26 Plt Count 214 K/uL (152-406) 11/11/20 12:26 MPV 8.5 fL (7.6-11.3) 11/11/20 12:26 Neutrophils % 91.4 % (41.7-73.7) H 11/11/20 12:26 Lymphocytes % 2.9 % (15.3-44.8) L 11/11/20 12: Monocytes % 5.6 % (3.3-12.3) 11/11/20 12: Eosinophils % 0.0 % (0-4.4) 11/11/20 12: Basophils % 0.1 % (0-1.3) 11/11/20 12: Absolute Neutrophils 7.6 K/uL (1.8-8.0) 11/11/20 12: Absolute Lymphocytes 0.2 K/uL (0.7-4.9) L 11/11/20 12: Absolute Monocytes 0.5 K/uL (0.1-1.3) 11/11/20 12: Absolute Eosinophils 0.0 K/uL (0-0.5) 11/11/20 12: Absolute Basophils 0.0 K/uL (0-0.5) 11/11/20 12:26 Platelet Estimate Adeq 11/11/20 12:26 Morphology Comment Not seen (NOT SEEN) 11/11/20 12:26 PT 13.6 SECONDS (9.5-12.5) H 11/11/20 12:26 INR 1.16 11/11/20 12:26 APTT 25.6 SECONDS (24.3-36.9) 11/11/20 12:26 Sodium 139 mmol/L (136-145) 11/11/20 12:26 Potassium 4.0 mmol/L (3.5-5.1) 11/11/20 12:26 Chloride 104 mmol/L (98-107) 11/11/20 12:26 Carbon Dioxide 27 mmol/L (21-32) 11/11/20 12:26 BUN 22 mg/dL (7-18) H 11/11/20 12:26 Creatinine 1.16 mg/dL (0.55-1.3) 11/11/20 12:26 Estimated GFR 60 mL/min (=/>90) L 11/11/20 12:26 Glucose 99 mg/dL (74-106) 11/11/20 12:26 Lactic Acid Cancelled 11/11/20 12:03 Calcium 8.6 mg/dL (8.5-10.1) 11/11/20 12:26 Ferritin 1052.9 ng/mL (26-388) H 11/11/20 12:26 Total Bilirubin 1.1 mg/dL (0.2-1.0) H 11/11/20 12:26 Direct Bilirubin 0.3 mg/dL (0-0.2) H 11/11/20 12:26 AST 62 U/L (15-37) H 11/11/20 12:26 ALT 70 U/L (12-78) 11/11/20 12:26 Alkaline Phosphatase 93 U/L (45-117) 11/11/20 12:26 Rapid Troponin I 0.03 ng/mL (0.0-0.045) 11/11/20 12:26 C-Reactive Protein 87.90 mg/L (<3.00) H 11/11/20 12:26 Serum Total Protein 6.8 g/dL (6.4-8.2) 11/11/20 12:26 Albumin 2.6 g/dL (3.4-5.0) L 11/11/20 12:26 Globulin 4.2 g/dL (2.3-3.5) H 11/11/20 12:26 Albumin/Globulin Ratio 0.6 (1.1-1.8) L 11/11/20 12:26 Procalcitonin < 0.05 ng/mL (<0.050) 11/11/20 12:26 Smear Scan Ok (OK) 11/11/20 12:26 Microbiology Data (last 24 hrs): 11/11/20 12:19 Throat Culture & Sensitivity - Final NORMAL UPPER RESPIRATORY YUDY GROWN. Medications List Reviewed: Yes Assessment & Plan Physician Review: Patient Assessed, Agree with Above Assessment and Plan Physician Review Additional Text: Impression: Dyspnea secondary to acute respiratory failure with hypoxia related to bilateral COVID pneumonia HTN Hyperlipidemia BPH Plan: Dyspnea secondary to acute respiratory failure with hypoxia related to bilateral COVID pneumonia: -Improving oxygen, wean down from 2 L to 1L today -stable 02 saturation -c/w incentive spirometer use -still 02 desaturation to < 87% with ambulation reported , follow trend today - may need home 02 if still unable to wean off 02 in am - Continue current management with IV steroid and Remdesivir. Patient also on supplementation. HTN: Continue home medication and adjust appropriately.. Hyperlipidemia: Continue home medication adjust properly. BPH: Continue home medication Time Spent Managing Pts Care (In Minutes): 35
[2020-11-14] MEDS: HYDRALAZINE HCL 25 MG TABLET PO SCH ×2 (11:21→20:02)
--- NOTE | 2020-11-14 14:56 | P.DS ---
Admission Date: 11/11/20 Discharge Date: 11/14/20 Primary Care Provider: Dr. 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 Patient reports increasing shortness of breath over the past several weeks. Patient started she reports some shortness of breath and cough on October 27. He apparently went to [facility] about 3 days ago and tested positive for COVID. Patient was released home. At home patient continue to have increasing shortness of breath. Increased fatigue, cough, and body aches noted. He came to the ER for further evaluation. In the ER patient was evaluated. Blood pressure 133/77. Heart rate 91. Patient was tachypneic in the ER. Patient had desaturations for requiring 3 L per nasal cannula. During the course of his ER visit patient required BiPAP. Chest x-ray reveals pattern of COVID pneumonia. White count 8.3, hemoglobin 15.4. Sodium 131, potassium 4.0. BUN of 22, creatinine 1.16 with a GFR 60. Glucose 99. Ferritin 1052. CRP 87. Total bilirubin 1.1. AST 62. Pro calcitonin unremarkable. Patient admitted for further evaluation and treatment. When I saw the patient ER, patient was on BiPAP but only required 28% Fi02. Patient without significant tachypnea. Patient reports other female lady friend with similar symptoms. Allergies Hospital Course: 80-year-old male with past medical history of hypertension, BPH admitted for cough with bilateral pneumonia. He developed worsening symptoms the started to improve with escalating doses of IV steroids, zinc and added ivermectin. Patient O2 is gradually been weaned down to 1 L now. His chest symptoms of a cough symptoms has improved. He will be discharged home today on home O2. Pulmonary has been discussed with and recommended discharge home. He will follow with Pulmonary in 2 days Vital Signs/Physical Exam: Temp Pulse Resp BP Pulse Ox 97.6 F 52 22 H 145/81 H 92 11/14/20 12:00 11/14/20 12:00 11/14/20 12:00 11/14/20 12:00 11/14/20 12:00 General: Alert, In no apparent distress, Oriented x3 HEENT: Atraumatic, Normocephalic, PERRLA Neck: Supple, 2+ carotid pulse no bruit, JVD not distended Respiratory: Normal air movement, Diminished Cardiovascular: No edema, Normal pulses, Regular rate/rhythm, Normal S1 S2 Gastrointestinal: Normal bowel sounds, Soft and benign, Non-distended, No ascites Musculoskeletal: No clubbing, No swelling Integumentary: No rashes, No breakdown Neurological: Normal speech, Normal strength at 5/5 x4 extr Laboratory Data at Discharge: WBC 9.9 K/uL (4.3-10.9) D 11/14/20 03:30 Hgb 14.4 g/dL (13.6-17.9) 11/14/20 03:30 Hct 43.4 % (39.6-49.0) 11/14/20 03:30 Plt Count 220 K/uL (152-406) 11/14/20 03:30 PT 13.6 SECONDS (9.5-12.5) H 11/11/20 12:26 INR 1.16 11/11/20 12:26 APTT 25.6 SECONDS (24.3-36.9) 11/11/20 12:26 Sodium 138 mmol/L (136-145) 11/14/20 03:30 Potassium 4.1 mmol/L (3.5-5.1) 11/14/20 03:30 BUN 32 mg/dL (7-18) H 11/14/20 03:30 Creatinine 0.84 mg/dL (0.55-1.3) 11/14/20 03:30 Glucose 120 mg/dL (74-106) H 11/14/20 03:30 Magnesium 2.4 mg/dL (1.8-2.4) 11/14/20 03:30 Total Bilirubin 0.6 mg/dL (0.2-1.0) 11/14/20 03:30 AST 61 U/L (15-37) H 11/14/20 03:30 ALT 140 U/L (12-78) H 11/14/20 03:30 Alkaline Phosphatase 77 U/L (45-117) 11/14/20 03:30 Home Medications: Tramadol HCl [Tramadol HCl ER] 50 mg PO Q6HP PRN #0 tbmp.24hr 11/29/11 Aspirin [Ecotrin 81 MG] 81 mg PO DAILY 08/23/19 Finasteride [Proscar*] 5 mg PO DAILY 08/23/19 Gabapentin 100 mg PO DAILY 08/23/19 Omeprazole [Prilosec] 40 mg PO DAILY 08/23/19 Rosuvastatin Calcium [Crestor] 10 mg PO DAILY 08/23/19 Multivitamin [Multiple Vitamins] 1 tab PO DAILY 11/11/20 Cholecalciferol (Vitamin D3) [Vitamin D 1000 Iu Tab*] 4,000 unit PO DAILY tab 11/14/20 Dexamethasone [Decadron] 6 mg PO DAILY #6 tablet 11/14/20 Famotidine [Pepcid*] 20 mg PO BID #60 tab 11/14/20 Finasteride [Proscar*] 5 mg PO BEDTIME tab 11/14/20 Gabapentin [Neurontin*] 100 mg PO BEDTIME PRN cap 11/14/20 Hydralazine [Apresoline*] 50 mg PO BID #60 tab 11/14/20 Zinc Sulfate [Zinc Sulfate*] 220 mg PO DAILY #30 cap 11/14/20 New Medications: Hydralazine [Apresoline*] 50 mg PO BID #60 tab Dexamethasone [Decadron] 6 mg PO DAILY #6 tablet Famotidine [Pepcid*] 20 mg PO BID #60 tab Zinc Sulfate [Zinc Sulfate*] 220 mg PO DAILY #30 cap Patient Discharge Instructions: Retuun to ER if worsneing SOB. - follow with Dr Newman in 2 days Diet: Low sodium Activity: Ad pako Followup: Judah Bone MD [Primary Care Provider] - Pravin Cuenca MD [ACTIVE - CAN ADMIT] - 1-2 Days Time spent managing pt's care (in minutes): 45
[2020-11-14] MEDS: MELATONIN 5 MG TABLET PO SCH (20:02)
[2020-11-14] MEDS: FINASTERIDE 5 MG TAB PO SCH (20:03)
[2020-11-14] MEDS: ROSUVASTATIN 10 MG TAB PO SCH (20:04)
[2020-11-15 04:12] LABS: Albumin 2.1 g/dL (3.4-5.0); Bilirubin Direct 0.2 mg/dL (0-0.2); Bilirubin Total 0.5 mg/dL (0.2-1.0); Protein, Total 5.3 g/dL (6.4-8.2)
[2020-11-15 04:48] VITALS: BP 152/84; TEMP 97
[2020-11-15] MEDS: LEVOTHYROXINE SOD 0.025 MG TAB PO SCH (05:17)
[2020-11-15 05:23] VITALS: BMI 28.8
[2020-11-15 07:25] VITALS: O2SAT 92
== END 2020-11-15 08:58 | disposition home or self-care (01) | DRG 177 ==
LOC: ER 11:32 → ERHOLD 15:16 → 4TH 15:26
PROVIDERS: ADMIT Family Medicine; ATTEND Internal Medicine
PROC: XW033E5 Introduction of Remdesivir Anti-infective into Peripheral Vein, Percutaneous Approach, New Technology Group 5 (ICD-10-PCS; principal; 2020-11-12)
DX: U07.1 COVID-19 (principal); J12.82 Pneumonia due to coronavirus disease 2019; J96.01 Acute respiratory failure with hypoxia; I10 Essential (primary) hypertension; E78.5 Hyperlipidemia, unspecified; N40.0 Benign prostatic hyperplasia without lower urinary tract symptoms; K21.9 Gastro-esophageal reflux disease without esophagitis; K59.00 Constipation, unspecified; R00.1 Bradycardia, unspecified; Z88.1 Allergy status to other antibiotic agents; Z79.82 Long term (current) use of aspirin; Z79.899 Other long term (current) drug therapy
CPT/HCPCS: 36415; 71045; 80048; 80053; 80076; 81003; 81015; 82248; 82728; 83735; 84145; 84484; 85025; 85610; 85730; 86140; 87040; 87070; 87081; 87086; 87088; 93005; 94002; 94003; 94010; 94660; 96361; 96365; 96375; 99285; J1650; J2930; J7040; J7050

== ENCOUNTER 2025-03-05 11:02 | Day surgery (SDC) | payer OTHER, BC ==
[2025-02-28 14:13] LABS: Absolute Eosinophils 0.1 K/uL (0-0.5); Absolute Lymphocytes (CBC) 1.2 K/uL (0.7-4.9); Absolute Monocytes 0.5 K/uL (0.1-1.3); Absolute Neutrophil 4.4 K/uL (1.8-8.0); Basophils % 0.6 % (0-1.3); Hemoglobin 13.9 g/dL (13.6-17.9); Lymphocytes % 19.3 % (15.3-44.8); MCH 31.8 pg (27.0-35.0); MCV 93.6 fL (80-100); MPV 8.1 fL (7.6-11.3); Monocytes % 7.8 % (3.3-12.3); Neutrophils % 70.3 % (41.7-73.7); Nucleated Red Blood Cells % 0.1 % (0-0); Platelets 179 thou/uL (152-406); RBC Red Blood Cell Count 4.38 M/uL (4.33-5.43); Red Cell Distribution Width 13.7 % (12.1-15.2)
[2025-02-28 14:21] LABS: PT Prothrombin Time 15.3 SECONDS (10-13.0); PTT, Activated Partial Thromb 39.3 SECONDS (27.2-37.4); Protime INR 1.36
--- NOTE | 2025-02-28 14:21 | RAD REPORT ---
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 COMPARISON: 11/11/2020 FINDINGS: The lungs are hyperexpanded suggesting COPD. The heart is mildly to moderately enlarged. No displaced fractures evident. Aortic atherosclerosis. IMPRESSION: COPD is suspected without acute finding identified.
[2025-02-28 14:27] LABS: Anion Gap 11.1 mEq/L (5.0-15.0); Potassium 4.1 mEq/L (3.5-5.1)
--- NOTE | 2025-03-03 12:06 | EKG ---
Test Date: 2025-02-28 Test Time: 14:03:57 Junior Account Executive: PRABHA MEASUREMENT RESULTS: Intervals: Rate: 57 AL: 256 QRSD: 102 QT: 444 QTc: 432 [place]: P: 32 AL: 256 QRS: 4 T: 140 INTERPRETIVE STATEMENTS: Sinus bradycardia with 1st degree AV block ST & T wave abnormality, consider lateral ischemia Abnormal ECG Compared to ECG 11/11/2020 12:22:52 ST (T wave) deviation now present Possible ischemia now present Sinus rhythm no longer present T-wave abnormality no longer present Electronically Signed On 03-03-25 12:04:08 CDT by Jesus Castillo
[2025-03-05] MEDS ORDERED: NA CHLORIDE 0.9% 500 ML ONE (11:05)
[2025-03-05] MEDS ORDERED: VERAPAMIL HCL 10 MG/4 ML VIAL IV ONE (11:53)
[2025-03-05] MEDS ORDERED: LIDOCAINE 1% 20 ML MDV ONE (11:53)
[2025-03-05] MEDS ORDERED: HEPA 1000U/500MLS 2,000 UNIT/1,000 ML BAG IV ONE (11:53)
[2025-03-05] MEDS ORDERED: HEPARIN 10,000 UNIT/10 ML VIAL IV ONE (11:53)
[2025-03-05] MEDS ORDERED: FENTANYL CITR 100 MCG/2 ML ONE (11:54)
[2025-03-05] MEDS ORDERED: MIDAZOLAM HCL 2 MG/2 ML INJ ONE (11:54)
[2025-03-05] MEDS ORDERED: ATROPINE SULF 1 MG/10 ML SYR IV ONE (11:54)
[2025-03-05] MEDS ORDERED: HEPARIN 5000 UNIT/ML 1 ML VIAL ONE (11:55)
[2025-03-05] MEDS ORDERED: ASPIRIN 81 MG CHEWABLE TABLET ONE (11:55)
[2025-03-05] MEDS ORDERED: TICAGRELOR 90 MG TABLET PO ONE (11:55)
[2025-03-05] MEDS ORDERED: CLOPIDOGREL 75 MG TABLET ONE (11:55)
[2025-03-05] MEDS ORDERED: NITROGLYCERIN/D5W 50 MG/250 ML BTL IV ONE (11:56)
--- NOTE | 2025-03-05 13:53 | OP ---
Date of Procedure: 03/05/2025 Surgeon: DONA PARRA Procedure Performed: Selective coronary angiogram. Indication: Pre-aortic valve replacement. Access: Right radial artery 6-Cypriot closed with TR band. Complications: None. Bleeding: Less than 50 mL. Description Of Procedure: After risks, benefits, and alternatives were explained, the patient agreed to procedure and signed informed consent. The [facility], prepped and draped in usual sterile fashion. Then, I accessed right radial artery using pedi atric micropuncture kit, placed 6-Cypriot slender sheath and took 5-Cypriot [place] 4.0 catheter over a J -wire into the aortic root, engaged the left main, took standard views, and in the RCA, took standard views and then removed the catheter and the sheath, placed TR band with good hemostasis. Findings: 1. Left main normal. 2. LAD; proximal 30% stenosis, and the mid segment is normal. Distally, there is focal 30% stenosis. Diagonal 1 branch has 20% to 30% stenosis. 3. Left circumflex; moderate to large size vessel, then it is normal. Normal OM branches. 4. RCA; large size vessel, that is normal as well. Conclusion: Mild nonobstructive coronary artery disease. Recommendation: Proceed with aortic valve replacement and medical management for coronary artery dis ease. SR/MODL Voice ID: [id number] Report ID: [id number]
[2025-03-05 15:11] VITALS: O2SAT 100
[2025-03-05 15:25] VITALS: BP 134/62
== END 2025-03-05 15:25 | disposition home or self-care (01) ==
LOC: CCL 11:02
PROVIDERS: ATTEND Internal Medicine
DX: I35.0 Nonrheumatic aortic (valve) stenosis (principal); I25.10 Atherosclerotic heart disease of native coronary artery without angina pectoris; I10 Essential (primary) hypertension; E78.2 Mixed hyperlipidemia; Z86.711 Personal history of pulmonary embolism; Z79.01 Long term (current) use of anticoagulants; Z79.899 Other long term (current) drug therapy; Z88.1 Allergy status to other antibiotic agents; Z88.8 Allergy status to other drugs, medicaments and biological substances
CPT/HCPCS: 93005; 85025; 80048; 36415; 85610; 85730; 71046; 93454; 76937; C1893; Q9966; J1644; J2003; J2250; J3010; J7040; 99152; 99153; J0461

== ENCOUNTER 2025-08-01 06:46 | Inpatient (IN) | payer OTHER, BC ==
[2025-08-01] MEDS ORDERED: CALCIUM CARBONATE CHEW 500MG TAB PO PRN (13:44)
[2025-08-01] MEDS ORDERED: ALBUTEROL 2.5 MG/3 ML NEB SOL NEB PRN (13:44)
--- NOTE | 2025-08-01 13:56 | P.RH.PN ---
Estimated Length of Stay: 12 Expected Discharge Date: 08/07/25 Discharge Disposition Plan: Home Family Support: Yes Pole Inspector Goal: Mobility, Transfers, Self Care Vital Signs: Last Vital Signs Temp 98.0 F 08/01/25 10:10 Pulse 84 08/01/25 10:10 Resp 18 08/01/25 10:10 BP 138/75 08/01/25 10:10 Pulse Ox 96 08/01/25 10:10 Weight: 207 lb Physician Update: Labs reviewed and are stable. Fully oriented and works well with staff. He has moderate pain at left femur fracture site. Min assist for all transfers except car transfers max assist. RW 150' x 2 and another 150'. He had back pain. Will add pain patch. WC 250' min assist. Summary: Patient's care plan and intermodal customer service goals have been reviewed and revised as necessary. Please see the Rehabilitation Signature page for all necessary signatures.
[2025-08-01] MEDS: CODEINE 30MG/APAP 300MG TAB PO PRN (14:00)
[2025-08-01] MEDS: FINASTERIDE 5 MG TAB PO SCH (19:09)
[2025-08-01] MEDS: APIXABAN 5 MG TABLET PO SCH (19:09)
[2025-08-01] MEDS: GABAPENTIN 100 MG CAP PO SCH (19:09)
[2025-08-01] MEDS: DOCUSATE NA/SENNA CONC 1 TAB PO SCH (19:09)
--- NOTE | 2025-08-02 04:35 | HP ---
Date of Admission: 08/01/2025 Time: 1:10 p.m. Chief Complaint: "I fell and broke my left hip." History Of Present Illness: Mr. Stewart is an 84-year-old patient with pulmonary embolism, muscle weak ness, hypertension, hypothyroidism, GERD, dyslipidemia, cognitive impairment, prostate cancer, who tomas d a transcatheter aortic valve replacement on 05/27/2025 without significant complications and was di scharged home the following day. After returning home, he had significant weakness, gait instability , and fell on 05/31/2025. He impacted his left hip, had significant pain. He was brought to [facility] and imaging showed an intertrochanteric fracture of the left femur. On 06/02/2025, he had surgical intervention with an intramedullary mallory of the left femur. He was discharged to [facility] for michelle abilitation on 06/05 and initially he demonstrated steady progress. However, about a month ago, he t wisted his back while exiting the shower and had persistent low back pain and his mobility slowed his recovery. His daughter also reported he remained largely bedbound for about a week and b ecome very weak. However, he has shown some gradual recovery. His hospital course and course post d ischarge included complications of his hypertension, fluctuations, mild urinary incontinence, and of course hypothyroidism requiring ongoing management. Prior to the patient's fall and fracture, he lives alone with his daughter nearby. He was independen t all mobility and activities of daily living. He only occasionally using a cane. His daughter note d, he is very active, completing his errands, enjoying a cruise prior to his fall. Currently require s supervision for mobility and activities of daily living using a walker and he is functioning well b elow his level of functioning. He is therefore a good candidate for aggressive inpatient rehabilitat ion where he will have his comorbid medical conditions managed along with recent physical, occupation al, and speech therapy for his cognition. The goal is to have him return towards his prior level of functioning and reduce his risk of rehospitalization. Past Medical History: As noted above. Surgical History: TAVR procedure on 05/27/2025 and the femur surgery on 06/02/2025. Allergies: CIPROFLOXACIN AND TAMSULOSIN. Medications: Tylenol with codeine 1 every 4 hours as needed, albuterol nebulizer 2.5 mg every 4 hour s as needed, Eliquis 5 mg twice daily, Tums 500 mg 4 times daily as needed, vitamin D 1000 units lizette y, diltiazem 120 mg daily, Proscar 5 mg at bedtime, gabapentin 100 mg twice daily, Synthroid 0.25 mg daily, lidocaine 2 patches apply topically daily to the lower back, Robaxin 500 mg 3 times daily, Pro tonix 40 mg daily, Senokot-S two at bedtime. Laboratory Studies: His blood work, laboratory studies are pending. X-rays imaging: More recent x-ray imaging pending. Family History: Noncontributory. Social History: No alcohol, tobacco, or IV drug use. Patient lives alone, but with a family close b y and to be back with his daughter after discharge at least until he is able to return to his independent functional status. Review of Systems: Some moderate back pain more than left hip pain. Mild myalgias arthralgias. No rash. No fevers or chills. No nausea, vomiting. No diarrhea or other positives on the systems review. Current Level Of Functioning: Currently for his eating independent, grooming independent, supervisio n for bathing, upper body dressing, contact guard assistance, lower body dressing, contact guard assi stance transferring bed to chair, wheelchair and toilet, contact guard assistance. Ambulation, conta ct guard assist, ambulating up to 250 feet, wheelchair 250 feet with supervision. Physical Examination: Vital Signs: Blood pressure 138/75, pulse 84, respiratory rate 18, temperature 98, oxygen saturation 96%. Weight 207 pounds, height 6 feet 1 inch, BMI 27.3. General: Mr. Stewart is resting in his bed. He does have some pain rated around 5 to 6 in the lower b ack, which is most painful phase, left hip surgical site has much less pain. HEENT: Otherwise, he is normocephalic, atraumatic. Sclerae anicteric. Oropharynx pink and moist. Neck: Supple. Chest: Clear. Extremities: No significant edema in the lower extremities. Neurological: There is no focal neurological deficit, giveaway weakness because of back pain. Rehab And Medical Assessment And Plan: Mr. Stewart is an 84-year-old patient admitted to the inpatient rehabilitation unit with impairment category 07, fracture of the lower extremity. Impairment group code is 08.1, unilateral hip fracture. Etiologic diagnosis: Nondisplaced intertrochanteric fracture of the left femur. Comorbidities include decreased mobility, decreased physical functioning, histor y of pulmonary embolism, hypertension, hypothyroidism, GERD, dyslipidemia, detw-mo-upmxxchk cognitive impairment, prostate cancer, recent TAVR procedure and the intramedullary mallory of the left femur. Plan: Will be to have physical and occupational, and speech therapy 3.5 hours, 5 of 7 days. He has a list of comorbid conditions and medications which have been noted and will be continued. He will h ave DVT prophylaxis and stroke risk reduction with Eliquis, gabapentin for neuropathic pain, lidocain e patch to the back for pain along with muscle relaxant, Protonix for GE reflux, Senokot-S for consti pation. Now he has bowel movement therapy and his diet and hydration. Comorbidities That Are Impacting Rehabilitation: Given he has atrial fibrillation, he is on Eliquis. He has a risk of bleeding especially if he falls on his noncompressible site. The patient had a ga it belt at all times, mobilizing and wheelchair and tow as he ambulates around the unit. His additio nal factors potentially risk of aspiration pneumonia is there. We will have incentive spirometry for that. We will have cranberry to reduce the risk of urinary tract infection and for his h emoglobin and hematocrit to determine if additional measures are needed such as protein supplementati on, iron supplementation, and transfusions. Rehab Specific Plan: Mr. Stewart will have physical, occupational, speech therapy 3.5 hours, 5 of 7 da ys to improve his ability to transfer from his bed to a chair, to wheelchair, to a toilet. He will g o in and out of the shower, to dress upper and lower body, donning and doffing his footwear. We will have his occupational therapy to work on his activities of daily living, have speech to work communi cation, safety awareness, processing and managing medications and he at this point able to do weightb earing on the left lower extremity but still precautions for his hip. Mr. Stewart has a good understanding of the process of admission to the inpatient rehabilitation unit a nd how he will benefit from physical, occupational, and speech therapy. He will have 24 hours a day, 7 days a week skilled rehabilitation nursing, daily physician evaluation and management, and social secretary evaluation and management for discharge planning, home equipment, and to continue therapy af ter his discharge. Barriers To Discharge: He is 84 and lives alone; however, his daughter will be with him for a while at least after going home. However, if there is not thriving as much he has already demonstrated heriberto e difficulty and bouncing right back may require extended stay, however, the goal is for him to be ab le to go home. He does have again risk of bleeding, risk of stroke, risk of pulmonary embolus that w ill be mitigated with Eliquis, mobilization if need be DOTTIE hose and sequential compression devices wi ll be applied. Length Of Stay: About 14 days. Disposition: Expected to go home and continue therapy via Home Health. Prognosis: Good. Code Status: Full code. Rehab Specific Goals: 1. Become independent with upper and lower body dressing and donning and doffing of footwear. 2. Independently ambulate 250 feet with a rolling walker. Mobilized wheelchair 250 feet and at about 10 stairs with bilateral handrails. 3. Independently perform all activities of daily living. 4. Independently perform cognitive functioning for at least with some very minimal supervision. The above goals were reviewed with Mr. Stewart and he is in agreement. By signing this document, I acknowledge I personally performed a full physical examination on Mr. Tj sanabria no later than 24 hours after his admission to the inpatient rehabilitation unit and determined he is able to tolerate the above course of treatment at an intensive level for reasonable period of time . A detailed individualized plan of care for him will be completed by hospital day 4 based on the preadmission screen, history and physical an d therapy evaluations. PHILIP Voice ID: [id number]
[2025-08-02] MEDS: LEVOTHYROXINE SOD 0.125 MG TAB PO SCH (06:22)
[2025-08-02 06:56] LABS: Absolute Lymphocytes (CBC) 0.9 K/uL (0.7-4.9); Hematocrit 35.9 % (39.6-49.0); Hemoglobin 12.5 g/dL (13.6-17.9); MCH 30.9 pg (27.0-35.0); MCHC 34.9 g/dL (32.0-36.0); MCV 88.5 fL (80-100); MPV 7.5 fL (7.6-11.3); Nucleated RBC Absolute Count 0.0 (0-0); Nucleated Red Blood Cells % 0.1 % (0-0); RBC Red Blood Cell Count 4.06 M/uL (4.33-5.43); White Blood Count 4.40 thou/uL (4.3-10.9)
[2025-08-02 07:14] LABS: Albumin 2.9 g/dL (3.4-5.0); Anion Gap 6.7 mEq/L (5.0-15.0); BUN Blood Urea Nitrogen 16.0 mg/dL (7-18); Glucose Level 105.0 mg/dL (74-106); Potassium 3.7 mEq/L (3.5-5.1); Prealbumin 14.4 mg/dL (20-40)
[2025-08-02] MEDS: PANTOPRAZOLE 40MG TABLET PO SCH (07:51)
[2025-08-02] MEDS: LIDOCAINE 4% PATCH TOP SCH (07:51)
[2025-08-02] MEDS: DILTIAZEM HCL 120 MG SR CAP PO SCH (07:51)
[2025-08-02] MEDS: VITAMIN D 1000 UNIT TAB PO SCH (07:52)
[2025-08-02] MEDS: NUBEQA 300 MG PO SCH (07:53)
[2025-08-02] MEDS: TADALAFIL 5 MG PO SCH (07:57)
[2025-08-02] MEDS: GEMTESA 75 MG PO SCH (07:57)
[2025-08-02 07:58] LABS: Calcium Oxalate Crystals- Ur Few /HPF (None Seen); Sqamous Epithelial <5 /HPF (None Seen); Urine Culture Reflex Order NOT NEEDED; Urine Microscopic Reflex YN ORDER UMIC
--- NOTE | 2025-08-04 16:01 | RAD REPORT ---
EXAM: XR of the abdomen HISTORY: Abdominal pain r/o constipation COMPARISON: None FINDINGS: XR of the abdomen demonstrate significant stool retention particularly along the right colo n. No bowel obstruction. Mild lumbar degenerative changes. Proximal left femur hardware. IMPRESSION: Moderate constipation, greater in the right colon.
[2025-08-04] MEDS: POLYETHYL GLY 3350 17 GM/DOSE PO PRN (16:39)
--- NOTE | 2025-08-04 22:42 | PN ---
Date of Progress Note: 08/04/2025 Time: 1:30 a.m. Subjective: Mr. Stewart is resting comfortably in bed, in no acute distress. Still has no bowel movem ent after about 5 days. KUB study was done to investigate or rule out the possibility of bowel obstr uction. The study showed moderate constipation, greater in the right colon. No evidence of obstruct ion seen. He will be given milk of Mag in addition to Senokot S and he was instructed by me to have a Dulcolax suppository or Fleet enema depending on the results of the upper attempts at bowel movemen ts. Objective: Again issues of bowel movements and some back pain, but otherwise no other complaints and the surgical site in the hip is not causing issue. Physical Examination: Vital Signs: Blood pressure 135/74, pulse 73, respiratory rate 18, temperature 97.2, oxygen saturati on 98%. General: Mr. Stewart is resting in bed between therapy sessions. HEENT: Appears normocephalic, atraumatic. Sclerae anicteric. Oropharynx pink, moist. Neck: Supple. Chest: Clear. Extremities: His intertrochanteric hip fracture site has good hemostasis. No evidence of swelling i nto the calf area. Laboratory Studies: No new laboratory studies. X-ray/imaging: X-rays and imaging has been mentioned. Medications: He does have adjustment for Duloxetine to help with the pain of 30 mg daily and he has continued his additional medications. He has Dulcolax for constipation, lidocaine patch on board, Sy nthroid on board. We will continue with Tylenol 3 as well for pain. Does not want tramadol. Progress Made With Physical, Occupational, And Speech Therapy: With physical therapy today, he did m ultiple umafgn-ba-cgy transfers with minimum assistance and some verbal cues, zmq-gg-bsyzf transfers with moderate assistance for contact guard assist and ambulated 250 feet, another 125 feet twice, 175 feet with contact guard assistance. Emphasis was placed on upright posture and proximity to walker. He mobilized a wheelchair 80 feet twice and 150 feet with standby assistance. With occupational th janine, independent with wheelchair propulsion from the bedroom to the bathroom and back, required mod erate assistance in reclined position to go to sit on the edge of bed in the afternoon. M dulcemum assistance for edge of bed to supine transfer and he was somewhat tired in the afternoon. Assessment And Plan: Mr. Stewart is an 84-year-old patient in rehabilitation unit with nondisplaced in tertrochanteric fracture, from which he is doing well, good hemostasis, and still has significant hanna n in the back and pain medications have been put in place to assist. He has atrial fibrillation with rapid ventricular response, on Eliquis 5 mg twice daily, multiple medications for blood pressure add ressed and again use Synthroid for hypothyroidism, Robaxin for muscle spasms, Protonix for GE reflux, Senokot for constipation, and also will have MiraLAX to help with constipation. Plan will be to con tinue physical and occupational therapy 3 hours a day, 5 of 7 days and a list of comorbid condition m edications as noted. He does not have bowel obstruction, but constipation as seen by KUB study and t he patient is able to return home and continue therapy with home health. He has a great chance of do ing very well. JUDITH/CAMILLE Voice ID: [id number] Report ID: [id number]
[2025-08-05] MEDS: DULOXETINE 30 MG CAP PO SCH (07:57)
--- NOTE | 2025-08-05 22:12 | PN ---
Date of Progress Note: 08/05/2025 Time: 1:25. Subjective: Mr. Stewart is doing well. No significant distress. He is making good progress so far. He is in rehab for a nondisplaced intertrochanteric fracture. Review of Systems: No fevers or chills, nausea, vomiting. Some moderate pain in the hip, but not stopping him from doi ng therapy well. Physical Examination: Vital Signs: Blood pressure 145/76, pulse 75, respiratory rate 18, temperature 98.0, oxygen saturati on 95%. General: Mr. Stewart is doing well, in no acute distress. He is managing therapy well. Neuro: He has no focal neurologic deficits. Diffuse weakness. He has good hemostasis at the surgic al site. Laboratory Studies: No new laboratory studies. X-ray/imaging: No new x-rays or imaging. Medications: His medications have been reviewed. He constipation, 3 days before his last bowel movement. We will have Dulcolax added 10 mg per rectum for suppository and we will continue w ith the GlycoLax 17 g daily and Senokot S 2 at bedtime. His pain is controlled with multimodalities. Duloxetine was increased to 40 mg daily, and he still on Tylenol #3, did not want gabapentin on boa rd. He still has methocarbamol for muscle spasms. Progress Made With Physical, Occupational, And Speech Therapy: With physical therapy performed multi ple gvdxuh-go-nxs transfers with minimum assistance, contact guard assistance with verbal cues. Sit- to-stand transfers with minimal assistance, contact guard assistance. Ambulated 125 feet twice and 1 75 feet twice with standby assistance. He is able to mobilize wheelchair 250 feet independently. Up and down 5 steps using bilateral handrails with minimum assistance. With occupational therapy, he w as able to do xrmrgw-ew-dbf transfers twice with standby assistance, sxf-mz-urpra transfers and going to shower with a rolling walker with standby assistance. Supervision for bathing and verbal cues to clean the buttocks region. Required supervision for upper body dressing, and footwear. Assessment And Plan: Mr. Stewart is an 84-year-old patient in rehabilitation unit with nondisplaced in tertrochanteric fracture on the left. He is weightbearing as tolerated and had a recent transcathete r aortic valve replacement procedure. He has comorbid conditions, decreased mobility, decreased phys ical functioning in addition to muscle spasms, gastroesophageal reflux, constipation, hypothyroidism, hypertension, risk of stroke and atrial fibrillation. Plan: Physical and occupational therapy 3 hours a day, 5 of 7 days. We will continue with list of m edications for his comorbid conditions, which have been noted. Medications have been adjusted to add ress his pain. JUDITH/CAMILLE Voice ID: [id number] Report ID: [id number]
[2025-08-06] MEDS: BISACODYL 10 MG RECTAL SUPP PR PRN (05:39)
[2025-08-06] MEDS: DULOXETINE 20 MG CAP PO SCH (08:37)
[2025-08-06] MEDS: DULOXETINE 30 MG CAP PO SCH (19:15)
--- NOTE | 2025-08-06 22:47 | PN ---
Date of Progress Note: 08/06/2025 Time: 1:25 p.m. Subjective: Mr. Stewart is resting in bed. Still complaining of significant low back pain. He does h ave a nondisplaced intertrochanteric fracture that is improving, is less painful than his back. Stil l the pain compared to yesterday was slightly better per the patient yesterday. Review of Systems: Again still complaining of moderate to severe lower back pain and otherwise no fevers, chills. No na usea, vomiting. No rash. No psychiatric complaints. Physical Examination: Vital Signs: Blood pressure is 154/72, pulse 77, respiratory rate 18, temperature 97.4, oxygen satur ation 97%. Weight 206 pounds. Height 6 feet 1 inch. BMI . General: Mr. Stewart is resting in bed between therapy sessions. HEENT: Appears normocephalic, atraumatic. Sclerae anicteric. Oropharynx pink, moist. Neck: Supple. Extremities: He does have good hemostasis at the hip surgical site. Laboratory Studies: No new laboratory studies. X-ray/imaging: No new x-rays or imaging. Medications: His medications were reviewed. He is now on Cymbalta 30 mg twice daily. Does not want gabapentin. Other medications do include Tylenol with codeine, which he has every 4 hours as needed in addition to the lidocaine patches . Progress Made With Physical, Occupational, And Speech Therapy: With physical therapy today, he did m ultiple [id number] transfers with contact guard assistance and verbal cues for sequencing. Sit-to -stand transfers done with standby assistance. He ambulated 325 feet, 125 feet twice and 175 feet tw ice with supervision using a rolling walker, placed on upright posture. With his occupational therap y, he was able to self propel a wheelchair from room to gym independently and he did sessi ons with upper body exercises. Did have some fatigue while exercises. Assessment And Plan: Mr. Stewart is an 84-year-old patient in the rehabilitation unit with nondisplace d intertrochanteric fractures. Doing fairly well although somewhat limited by back pain. The fractu re on the left is not a big problem with him. He does have decreased mobility, decreased physical fu nctioning, which is improving well. He does have reflux, constipation, hypothyroidism, hypertensi on, and he actually has had a bowel movement after 5 days of constipation and atrial fibrillation. H is plan will be to continue with physical and occupational therapy 3 hours a day, 5 of 7 days and his medication list should be noted, will be continued including some adjustments in the duloxetine toda y to help with his back pain. Plan is for him to go home and continue therapy via Home Health. JUDITH/CAMILLE Voice ID: [id number] Report ID: [id number]
[2025-08-07 06:26] LABS: Absolute Lymphocytes (CBC) 0.7 K/uL (0.7-4.9); Hematocrit 36.7 % (39.6-49.0); Hemoglobin 12.5 g/dL (13.6-17.9); MCH 30.0 pg (27.0-35.0); MCHC 34.1 g/dL (32.0-36.0); MCV 87.8 fL (80-100); MPV 7.5 fL (7.6-11.3); Nucleated RBC Absolute Count 0.0 (0-0); Nucleated Red Blood Cells % 0.2 % (0-0); RBC Red Blood Cell Count 4.18 M/uL (4.33-5.43); White Blood Count 4.40 thou/uL (4.3-10.9)
[2025-08-07 06:48] LABS: Albumin 3.0 g/dL (3.4-5.0); Anion Gap 9.3 mEq/L (5.0-15.0); BUN Blood Urea Nitrogen 14.0 mg/dL (7-18); Glucose Level 103.0 mg/dL (74-106); Magnesium 1.5 mg/dL (1.6-2.4); Potassium 3.3 mEq/L (3.5-5.1); Prealbumin 13.2 mg/dL (20-40)
[2025-08-07] MEDS: Magnesium Sulfate 2gm IVPB 2 G/50 ML BAG IV ONE (14:41)
[2025-08-07] MEDS: POTASSIUM CL SA 10 MEQ TAB PO ONE (14:41)
[2025-08-07] MEDS: MAGNESIUM OXIDE 400 MG TAB PO SCH (19:44)
--- NOTE | 2025-08-07 23:23 | PN ---
Date of Progress Note: 08/07/2025 Time: 1:25 p.m. Subjective: Mr. Stewart is resting in bed. His back pain has improved slightly was still present and the left hip nondisplaced intertrochanteric fracture surgical site is not posing much pain. Objective: No fevers, chills, nausea, vomiting, myalgias, arthralgias. Otherwise, no other complain ts. Physical Examination: Vital Signs: Blood pressure is 152/73, pulse 68, respiratory rate 16, temperature 97.4, O2 saturatio n 97%. General: Mr. Stewart is resting in bed between therapy sessions. HEENT: He is normocephalic, atraumatic. Sclerae anicteric. Oropharynx pink and moist and no signif icant abnormalities of the left hip surgical site with good hemostasis. Laboratory Studies: White blood cell count is 4.4, hemoglobin 12.5, platelets are 156. Sodium 137, potassium 3.3, chloride 102, carbon dioxide 29, BUN 14, creatinine 0.64, glucose 103, magnesium 1.5, albumin 3.0, prealbumin 13.2. X-ray/imaging: No new x-rays or imaging. Medications: Have been reviewed. He is on duloxetine 30 mg twice daily to help with his back pain. He does not want gabapentin. Also he has magnesium oxide 400 mg twice daily to help with sleep at [facility] and has Robaxin already as needed for muscle spasms in addition to the Tylenol 3. He has Eliqui s 5 mg twice daily for stroke and DVT risk reduction addressing atrial fibrillation, diltiazem for he art rate and blood pressure control. Progress Made With Physical, Occupational, And Speech Therapy: With physical therapy today, he was a ble to perform multiple [id number] transfers independently, multiple [id number]-ll-[id number] transfers indepe ndently, uofss-au-cquhd transfers, standby assistance. He ambulated 350 feet, 125 feet twice, 175 fe et with supervision. He was able to go up and down 5 steps with bilateral handrails and contact guar d assistance. With occupational therapy, minimum assistance for shower, transfer to wheelchair, to b ed transfer also minimum assistance, his upper body dressing, oral hygiene, toileting done with minim al assist. Assessment And Plan: Mr. Stewart is an 84-year-old patient with a nondisplaced left intertrochanteric hip fracture. He is making good progress overall with physical, occupational, and speech therapy, ge tting close to modified independence. He does have back pain as ongoing issue and pain medications h ave been adjusted on multiple occasions to address the pain. Otherwise, his comorbid conditions are stably managed. In terms of plan, we will continue with physical and occupational therapy 3 hours a day, 5 of 7 days and medication adjustment had been noted including duloxetine. He does have Tylenol 3 muscle spasms and addressed with the methocarbamol and magnesium. GE reflux addressed. Constipat ion has been addressed and that is improving significantly. We will continue all therapy as noted. Continue comorbid condition medications. Plan is for him to discharge and continue therapy via Home Health. JUDITH/CAMILLE Voice ID: [id number] Report ID: [id number]
[2025-08-08 07:39] LABS: Anion Gap 10.5 mEq/L (5.0-15.0); BUN Blood Urea Nitrogen 13.0 mg/dL (7-18); Glucose Level 109.0 mg/dL (74-106); Magnesium 1.8 mg/dL (1.6-2.4); Potassium 3.5 mEq/L (3.5-5.1)
[2025-08-08 13:52] VITALS: BMI 27.1
--- NOTE | 2025-08-08 14:13 | P.RH.PN ---
Estimated Length of Stay: 11 Expected Discharge Date: 08/09/25 Discharge Disposition Plan: Home Family Support: Yes Long-Term Goal: Mobility, Transfers, Self Care Vital Signs: Last Vital Signs Temp 97.6 F 08/08/25 07:36 Pulse 73 08/08/25 07:36 Resp 18 08/08/25 07:36 BP 175/90 H 08/08/25 07:36 Pulse Ox 94 08/08/25 07:36 Laboratory: Laboratory Last Values WBC 4.40 thou/uL (4.3-10.9) 08/07/25 05:51 RBC 4.18 M/uL (4.33-5.43) L 08/07/25 05:51 Hgb 12.5 g/dL (13.6-17.9) L 08/07/25 05:51 Hct 36.7 % (39.6-49.0) L 08/07/25 05:51 MCV 87.8 fL (80-100) 08/07/25 05:51 MCH 30.0 pg (27.0-35.0) 08/07/25 05:51 MCHC 34.1 g/dL (32.0-36.0) 08/07/25 05:51 RDW 15.2 % (12.1-15.2) 08/07/25 05:51 Plt Count 156 thou/uL (152-406) 08/07/25 05:51 MPV 7.5 fL (7.6-11.3) L 08/07/25 05:51 Neutrophils % 72.2 % (41.7-73.7) 08/07/25 05:51 Lymphocytes % 15.3 % (15.3-44.8) 08/07/25 05:51 Monocytes % 10.9 % (3.3-12.3) 08/07/25 05:51 Eosinophils % 1.2 % (0-4.4) 08/07/25 05:51 Basophils % 0.4 % (0-1.3) 08/07/25 05:51 Absolute Neutrophils 3.2 K/uL (1.8-8.0) 08/07/25 05:51 Absolute Lymphocytes 0.7 K/uL (0.7-4.9) 08/07/25 05:51 Absolute Monocytes 0.5 K/uL (0.1-1.3) 08/07/25 05:51 Absolute Eosinophils 0.1 K/uL (0-0.5) 08/07/25 05:51 Absolute Basophils 0.0 K/uL (0-0.5) 08/07/25 05:51 Sodium 135 mEq/L (136-145) L 08/08/25 07:01 Potassium 3.5 mEq/L (3.5-5.1) 08/08/25 07:01 Chloride 99 mEq/L (98-107) 08/08/25 07:01 Carbon Dioxide 29 mEq/L (21-32) 08/08/25 07:01 Anion Gap 10.5 mEq/L (5.0-15.0) 08/08/25 07:01 BUN 13 mg/dL (7-18) 08/08/25 07:01 Creatinine 0.64 mg/dL (0.70-1.30) L 08/08/25 07:01 Est GFR (CKD-EPI) 93 ml/min (=/>90) 08/08/25 07:01 Glucose 109 mg/dL (74-106) H 08/08/25 07:01 Calcium 10.6 mg/dL (8.5-10.1) H 08/08/25 07:01 Magnesium 1.8 mg/dL (1.6-2.4) 08/08/25 07:01 Albumin 3.0 g/dL (3.4-5.0) L 08/07/25 05:51 Prealbumin 13.2 mg/dL (20-40) L 08/07/25 05:51 Urine Color Yellow (Yellow) 08/02/25 04:45 Urine Clarity Extremely turbid (Clear) H 08/02/25 04:45 Urine pH 5.5 (5.0-7.0) 08/02/25 04:45 Ur Specific [place] 1.021 (1.005-1.030) 08/02/25 04:45 Glucose (UA)(Auto) Negative (Negative) 08/02/25 04:45 Urine Ketones Negative (Negative) 08/02/25 04:45 Urine Blood 3+ (over) (Negative) H 08/02/25 04:45 Urine Nitrite Negative (Negative) 08/02/25 04:45 Urine Bilirubin Negative (Negative) 08/02/25 04:45 Urine Urobilinogen Normal (Normal) 08/02/25 04:45 Ur Leukocyte Esterase Negative Naomi/uL (Negative) 08/02/25 04:45 Urine RBC >50 /HPF (None Seen) H 08/02/25 04:45 Urine WBC 5-10 /HPF (<5) 08/02/25 04:45 Ur Squamous Epith Cells <5 /HPF (None Seen) 08/02/25 04:45 Calcium Oxalate Crystal Few /HPF (None Seen) 08/02/25 04:45 Amorphous Crystals Trace /HPF (None Seen) 08/02/25 04:45 Urine Bacteria <20 /HPF (<20) 08/02/25 04:45 Hyaline Casts 10-20 /LPF (None Seen) H 08/02/25 04:45 Urine Mucus 1+ /HPF (None Seen) 08/02/25 04:45 Urine Culture Reflexed Not needed 08/02/25 04:45 Urine Total Protein Trace (Negative) H 08/02/25 04:45 Weight: 206 lb Wound Present: No Closed Surgical Incision Present: No Negative Pressure Wound Therapy Present: No Physician Update: Labs are stable but prealbumin is moderately low. Still has moderate lower back pain. CGA for 5 stairs. 3/5 STG due to pain when working with OT. Min assist for 150' with RW. ADLs min assist. Toilet transfers min assist. Summary: Patient's care plan and [employer] goals have been reviewed and revised as necessary. Please see the Rehabilitation Signature page for all necessary signatures.
[2025-08-09 07:22] VITALS: BP 150/80; TEMP 97.8
== END 2025-08-09 11:37 | disposition home health service (06) | DRG 561 ==
LOC: 5TH 09:30
PROVIDERS: ADMIT Psychiatry & Neurology Neurology with Special Qualifications in Child Neurology; ATTEND Psychiatry & Neurology Neurology with Special Qualifications in Child Neurology
DX: S72.145D Nondisplaced intertrochanteric fracture of left femur, subsequent encounter for closed fracture with routine healing (principal); M62.81 Muscle weakness (generalized); M62.838 Other muscle spasm; M79.605 Pain in left leg; M54.50 Low back pain, unspecified; G31.84 Mild cognitive impairment of uncertain or unknown etiology; I48.91 Unspecified atrial fibrillation; I10 Essential (primary) hypertension; E03.9 Hypothyroidism, unspecified; K21.9 Gastro-esophageal reflux disease without esophagitis; K59.00 Constipation, unspecified; E78.5 Hyperlipidemia, unspecified; C61 Malignant neoplasm of prostate; Z95.2 Presence of prosthetic heart valve; Z79.01 Long term (current) use of anticoagulants
CPT/HCPCS: 36415; 74018; 80048; 81001; 82040; 83735; 84134; 85025; 97110; 97116; 97162; 97165; 97530; 97542; J2003; J3475